=== PATIENT | female | born 1955 | race Caucasian/White ===

== ENCOUNTER 2019-12-20 16:12 | Outpatient (CLI) | payer MEDICARE, BC, SELFPAY ==
--- NOTE | ~2019-12-20 | MM_ITS ---
EXAMINATION: MM screening elizabeth BI w tim HISTORY: Screening mammogram TECHNIQUE: Craniocaudal and mediolateral oblique 3-D tomosynthesis images were obtained and synthetic 2-D images were generated. CAD analysis was submitted and interpreted. COMPARISON: 09/27/2018, 01/25/2018, 07/18/2016 bilateral digital screening mammogram examinations BREAST PARENCHYMAL COMPOSITION: There are scattered areas of fibroglandular density. FINDINGS: There is no evidence of suspicious mass, calcification, or architectural distortion to sugg est malignancy in either breast. There has been no suspicious interval change. IMPRESSION: 1. No mammographic evidence of malignancy. 2. Recommend routine screening mammography in one year. BI-RADS Category 1: Negative Reviewed, dictated and finalized at location A.
== END 2019-12-20 16:13 | disposition home or self-care (01) ==
PROVIDERS: PCP Family Medicine; Visit Provider Student in an Organized Health Care Education/Training Program
DX: Z12.31 Encounter for screening mammogram for malignant neoplasm of breast (principal)
CPT/HCPCS: 77063; 77067

== ENCOUNTER 2020-04-10 09:55 | Outpatient (CLI) | payer MEDICARE, BC, SELFPAY ==
--- NOTE | 2020-04-10 | ECG_ITS ---
Measurements Intervals [place] Rate: 77 P: 50 [place]: 175 QRS: 34 QRSD: 85 T: 40 QT: 341 QTc: 388 Interpretive Statements SINUS RHYTHM LOW QRS VOLTAGE IN PRECORDIAL LEADS BORDERLINE ECG Electronically Signed On 04-10-2020 10:53:26 LINEMARKER by Jai Godinez D.O.
== END 2020-04-10 09:56 | disposition home or self-care (01) ==
LOC: ANHCARD 09:59
PROVIDERS: PCP Family Medicine; Visit Provider Podiatrist Foot & Ankle Surgery
DX: R03.0 Elevated blood-pressure reading, without diagnosis of hypertension (principal)
CPT/HCPCS: 93005

== ENCOUNTER 2020-12-19 09:08 | Outpatient (CLI) | payer MEDICARE, BC, SELFPAY ==
--- NOTE | ~2020-12-19 | MM_ITS ---
EXAMINATION: MM screening elizabeth BI w tim HISTORY: Screening mammogram TECHNIQUE: Craniocaudal and mediolateral oblique 3-D tomosynthesis images were obtained and synthetic 2-D images were generated. CAD analysis was submitted and interpreted. COMPARISON: 12/20/2019, 09/27/2018, 09/24/2017 bilateral digital screening mammogram examinations BREAST PARENCHYMAL COMPOSITION: There are scattered areas of fibroglandular density. FINDINGS: There is no evidence of suspicious mass, calcification, or architectural distortion to sugg est malignancy in either breast. There has been no suspicious interval change. IMPRESSION: 1. No mammographic evidence of malignancy. 2. Recommend routine screening mammography in one year. BI-RADS Category 1: Negative Reviewed, dictated and finalized at location A.
== END 2020-12-19 09:09 | disposition home or self-care (01) ==
PROVIDERS: PCP Family Medicine; Visit Provider Student in an Organized Health Care Education/Training Program
DX: Z12.31 Encounter for screening mammogram for malignant neoplasm of breast (principal)
CPT/HCPCS: 77063; 77067

== ENCOUNTER → 2021-08-19 11:38 | Outpatient (CLI) | payer MEDICARE, BC, SELFPAY ==
--- NOTE | ~2021-08-19 | XR_ITS ---
XR chest 2V DATE: 08/19/2021 12:09 INDICATION: Shortness of breath TECHNIQUE: PA and lateral views COMPARISON: 05/22/2017 PA and lateral chest FINDINGS: Normal heart size. No hilar or mediastinal enlargement. No pulmonary infiltrate or consolid ation, pleural effusion or pulmonary vascular congestion or pneumothorax is detected. There is osteop enia. IMPRESSION: No active cardiopulmonary disease Reviewed, dictated and finalized at location A.
== END ==
PROVIDERS: PCP Family Medicine; Visit Provider Nurse Practitioner Family
DX: R06.02 Shortness of breath (principal)
CPT/HCPCS: 71046

== ENCOUNTER 2021-08-19 12:20 | Outpatient (CLI) | payer MEDICARE, BC, SELFPAY ==
--- NOTE | 2021-08-19 12:27 | ECG_ITS ---
Measurements Intervals [place] Rate: 69 P: 29 [place]: 163 QRS: -1 QRSD: 90 T: -1 QT: 350 QTc: 376 Interpretive Statements SINUS RHYTHM BASELINE ARTIFACT LOW QRS VOLTAGE IN PRECORDIAL LEADS BORDERLINE ECG COMPARED TO ECG 04/10/2020 10:38:45 NO SIGNIFICANT CHANGES Electronically Signed On 08-19-2021 14:53:15 CDT by Sunny Whitman M.D.
== END 2021-08-19 12:21 | disposition home or self-care (01) ==
PROVIDERS: PCP Family Medicine; Visit Provider Family Medicine
DX: R06.02 Shortness of breath (principal)
CPT/HCPCS: 93005

== ENCOUNTER 2021-09-11 09:04 | Outpatient (CLI) | payer MEDICARE, BC, SELFPAY ==
--- NOTE | 2021-09-27 13:42 | P.PCNPFT_ITS ---
PFT Procedure Performed PFT Procedure Performed Spirometry with Pre/Post Bronchodilator Plethysmography (Lung Vol) Diffusing Cap (DLCO) Flow Vol Loop PFT Interpretation DOS: 09/11/2021 REQUESTING: Ayala Pratt NP REASON FOR TESTING: Shortness of rbeath PULMONARY FUNCTION TESTS Results are reliable and reproducible. Spirometry: Pre-bronchodilator FEV1 is 99% predicted, 1.98 L, normal. Pre- bronchodilator FVC is 105% predicted, 2.66 L, normal. FEV1/FVC ratio is 74% normal. [id number] is 89% predicted. After bronchodilator, there is a 9% increase in the FEV1, 108% predicted, 2.16 L. There is a 5% increase in the FVC, 110% predicted, 2.98 L. There is a 19% increase in the FEF 25-75, 106% pred icted, 1.91 L. The increase in flows does not meet the ATS guidelines for 12% increase in the FEV1 or FVC so this is non statistically significant. Lung volumes: Total lung capacity 88%, 3.9 L, normal. FRC 71%, 1.77 L, normal. ERV is 42%, 0.34 L, reduced. The BMI is 38.3 and this may be the cause of the low ERV. Residual volume 65%, 1.24 L, normal. RV/TLC 32%, normal. Airway resistance is 99%, normal. Diffusion: DLCO 71%, 13.7 mL/min/mmHg, normal. D/VA is 85%, 3.85 L, normal. LCO Flow volume loop: Normal. IMPRESSION: Normal spirometry, lung volumes and diffusion. No change with bro nchodilator. Lack of response to bronchodilator should not preclude use if clinically indicated. Arianna Ordaz MD
== END 2021-09-11 09:05 | disposition home or self-care (01) ==
LOC: ANHPFT 09:06
PROVIDERS: PCP Family Medicine; Visit Provider Nurse Practitioner Family
DX: R06.02 Shortness of breath (principal)
CPT/HCPCS: 94060; 94726; 94729

== ENCOUNTER 2021-11-01 09:05 | Outpatient (CLI) | payer MEDICARE, BC, SELFPAY ==
--- NOTE | 2021-11-01 09:17 | ECHO_ITS ---
Patient Info Name: Yanira Renteria Age: 65 years : 1955 Gender: Female Ht: 60 in Wt: 187 lbs BSA: 1.94 m2 HR: 71 bpm BP: 124 / 77 mmHg Technical Quality: Fair Exam Date: 11/01/2021 10:35 AM Exam Location: [facility] Pulmonary Patient Status: Outpatient Admit Date: 11/01/2021 Staff Ordering Physician: Janel Ovalle NP Authorization Rep: Zehra Newell RDCS Attending Provider: Janel Ovalle NP Referring Physician: Yamile OROZCO; Exam Type: CA echo doppler color flow Study Info Indications I10 - Essential (primary) hypertension Complete two-dimensional, color flow and Doppler transthoracic echocardiogram is performed. Summary 1. Complete two-dimensional, color flow and Doppler transthoracic echocardiogram is performed. 2. Left ventricular chamber dimension is normal. 3. Left ventricular systolic function is normal, estimated at 60-65%. 4. The left ventricular diastolic function is grade I diastolic dysfunction. 5. E/e' 8 is minimally elevated. 6. There is mild aortic valve sclerosis. 7. No pulmonary hypertension, estimated pulmonary arterial systolic pressure is 30 mmHg. Left Ventricle E/e' 8 is minimally elevated. Left ventricular chamber dimension is normal. Left ventricular systolic function is normal, estimated at 60-65%. The left ventricular diastolic function is grade I diastolic dysfunction. Right Ventricle Right ventricular chamber dimension is normal. Right ventricular systolic function is normal. Left Atria Left atrial chamber dimension is normal. Right Atria Right atrial chamber dimension is normal. Aortic Valve The aortic valve is trileaflet. There is mild aortic valve sclerosis. There is no aortic valve stenosis. There is no aortic valve regurgitation. Pulmonic Valve There is no pulmonic regurgitation. Mitral Valve There is no mitral valve stenosis. There is no mitral valve regurgitation. Tricuspid Valve There is no tricuspid valve regurgitation. No pulmonary hypertension, estimated pulmonary arterial systolic pressure is 30 mmHg. Pericardium/Pleural There is no pericardial effusion. Inferior Vena Cava Normal inferior vena cava with >50% collapse upon inspiration consistent with normal right atrial pressure, 5 mmHg. Aorta The aortic root size at the sinus of Valsalva is normal. Left Ventricular Outflow Tract Name Value Normal LVOT 2D LVOT Diameter 2.0 cm LVOT Doppler LVOT Peak Gradient 7 mmHg LVOT Mean Gradient 3 mmHg LVOT VTI 23 cm LVOT VTI/AV VTI Ratio 0.9 LVOT Stroke Volume 69 ml Pulmonic Valve Name Value Normal PV Doppler PV Peak Gradient 3 mmHg Mitral Valve
== END 2021-11-01 09:06 | disposition home or self-care (01) ==
LOC: ANHCARD 09:08
PROVIDERS: PCP Family Medicine; Visit Provider Nurse Practitioner Family
DX: R06.02 Shortness of breath (principal); I10 Essential (primary) hypertension; I70.0 Atherosclerosis of aorta
CPT/HCPCS: 93306

== ENCOUNTER 2021-12-25 09:01 | Outpatient (CLI) | payer MEDICARE, BC, SELFPAY ==
--- NOTE | ~2021-12-25 | MM_ITS ---
EXAMINATION: MM screening [facility] BI w tim HISTORY: Screening mammogram TECHNIQUE: Craniocaudal and mediolateral oblique 3-D tomosynthesis images were obtained and synthetic 2-D images were generated. CAD analysis was submitted and interpreted. COMPARISON: 12/19/2020, 12/20/2019, 09/27/2018 BREAST PARENCHYMAL COMPOSITION: There are scattered areas of fibroglandular density. FINDINGS: No suspicious mass, calcification, or architectural distortion are identified in either elan ast to suggest malignancy. There has been no suspicious interval change. IMPRESSION: 1. No mammographic evidence of malignancy. 2. Recommend routine screening mammography in one year. BI-RADS Category 1: Negative Reviewed, dictated and finalized at location A.
--- NOTE | ~2021-12-25 | DEXA_ITS ---
Bone Density Report Name: SHENA PORTER Age: 66 Sex: Female Ethnicity: White Date of : 1955 Indication: postmenopausal; screening for osteoporosis; height loss; asthma or emphysema; Referring Provider: FAMILIA WHALEN Study: Bone densitometry was performed. Exam Date: December 25, 2021 Accession number: [id number] Bone Density: Region BMD T-score Z-score Classification AP Spine(L1-L4) 0.984 -0.6 1.4 Normal Femoral Neck (Left) 0.707 -1.3 0.4 Osteopenia Total Hip (Left) 0.843 -0.8 0.6 Normal Femoral Neck (Right) 0.668 -1.6 0.1 Osteopenia Total Hip (Right) 0.885 -0.5 0.9 Normal Total Hip Mean 0.864 -0.7 0.8 Normal World Health Organization criteria for BMD impression classify patients as: Normal (T-score at or above -1.0), Osteopenia (T-score between -1.0 and -2.5), or Osteoporosis (T-score at or below -2.5). 10-year Fracture Risk(1): Major Osteoporotic Fracture 8.9% Hip Fracture 1.1% Reported Risk Factors: [place] (), Neck BMD=0.668, BMI=38.4 (1) FRAX(R) Version 3.08. Fracture probability calculated for an untreated patient. Fracture probability may be lower if the patient has received treatment. Clinical Information Provided by Patient: Has used the following medications: Vitamin D, Calcium Has the following medical conditions: Asthma or Emphysema Patient maximum height was 62 Menopause Age: 54 Drinks caffeinated beverages Onset of menses at age 11 Number of children 0 Impression: The patient has low bone mass, based on the Right Femoral Neck T-score. The patient has an estimated ten-year risk of hip fracture of 1.1% and an estimated ten-year risk of major fracture of 8.9%, based on the WHO FRAX algorithm. Discussion: BONE DENSITY IS LOW AT ONE OR MORE SKELETAL SITES. This patient's lowest T-score is low at one or more skeletal sites. It meets the World Health Organization's (WHO) criteria for ?low bone mass? (T-score between -1.0 and -2.5). The patient's 10-year risk of fracture as calculated by FRAX is less than the threshold where pharmacological therapy is recommended by the National Osteoporosis Foundation (NOF). However, all treatment decisions require clinical judgment and consideration of individual patient factors, including patient preferences, comorbidities, previous drug use, risk factors not captured in the FRAX model (e.g., frailty, falls, vitamin D deficiency, increased bone turnover, interval significant decline in bone density) and possible under or overestimation of fracture risk by FRAX. The patient should follow a healthful lifestyle (good nutrition with adequate calcium and vitamin D, and appropriate weight-bearing exercise). Follow-Up: Consider repeating this study in 2 to 3 years to reassess this patient's status, or sooner if there is tony
== END 2021-12-25 09:02 | disposition home or self-care (01) ==
LOC: ANHIMG 09:03
PROVIDERS: PCP Family Medicine; Visit Provider Student in an Organized Health Care Education/Training Program
DX: Z12.31 Encounter for screening mammogram for malignant neoplasm of breast (principal); Z78.0 Asymptomatic menopausal state; M85.852 Other specified disorders of bone density and structure, left thigh; M85.851 Other specified disorders of bone density and structure, right thigh
CPT/HCPCS: 77063; 77067; 77080

== ENCOUNTER → 2022-05-23 08:12 | Outpatient (CLI) | payer MEDICARE, BC, SELFPAY ==
--- NOTE | ~2022-05-23 | US_ITS ---
Thyroid ultrasound. Clinical History: Nontoxic goiter Findings: Real-time sonography of the thyroid gland was performed. The right lobe measures 3.7 x 1.2 x 1.1 cm. The left lobe measures 3.4 x 1.2 x 1.1 cm. The isthmus is 2 mm in AP diameter. There is a 6 mm hyperechoic solid nodule at the left lower pole. There is a 7 mm hypoechoic ovoid, wi clifton than tall solid nodule at the left side of the isthmus. Impression: Subcentimeter thyroid nodules, as above. No further follow-up required.. Reviewed, dictated and finalized at location M. Impression: Subcentimeter thyroid nodules, as above. No further follow-up required..
== END ==
PROVIDERS: PCP Family Medicine; Visit Provider Nurse Practitioner Family
DX: E04.2 Nontoxic multinodular goiter (principal)
CPT/HCPCS: 76536

== ENCOUNTER 2022-09-15 08:55 | Outpatient (CLI) | payer MEDICARE, BC, SELFPAY ==
--- NOTE | 2022-10-03 17:28 | WPDHOMESLEEP ---
Sleep Study - Home Unattended Date of Study: 09/15/22 Ordering Provider: Jai Godinez DO Interpreting Provider: Arianna Ordaz MD Home Sleep Study Type: Watch PAT Height: 1.55 m Weight: 88.451 kg Body Mass Index: 36.8 Neck Circumference (inches): 14.5 [place]: 8 Reason for Sleep Study Poor quality sleep, frequent nighttime awakenings, loud snoring Sleep History Yanira Renteria is a 66-year-old female with hypertension and hyperlipidemia. She is referred for a home sleep test for loud snoring that wakes her at night. This has been going on for years. She also has sinus issues and she is overweight. She has tried sinus medication at night which has not really helped. There is a family history of sleep apnea in her older brother and younger brother. She rarely awakens from sleep feeling short of breath. She rarely awakens at night with heartburn, belching or coughing. She frequently snores and it is frequently loud enough that others complain about it. She occasionally has difficulty sleeping with a cold. She rarely wakes up gasping for breath at night. She does not have breathing problems at night observed by others. She does not sweat excessively at night or notice her heart pounding or beating irregularly at night. She occasionally falls asleep during the day, rarely falls asleep involuntarily however she does rarely fall asleep while driving. She does not have loss of muscle tone with strong emotion. She rarely has daytime difficulties due to excessive sleepiness. She does not feel paralyzed on waking or falling asleep. She does not have vivid dreamlike scenes on waking or falling asleep. She does not feel afraid to go to sleep. She rarely has nightmares. She occasionally remembers her dreams. She rarely has racing thoughts. She rarely feels sad or depressed. She occasionally feels anxious. She occasionally has muscular tension. She rarely notices parts of her body jerking. She rarely kicks at night. She rarely has crawling or aching feelings in her legs. She occasionally has leg pain at night. She does not have morning jaw pain or grind her teeth during sleep. She occasionally is bothered by pain during the day. She rarely is awakened by pain at night. She rarely wakes up feeling stiff in the morning with sore or achy muscles. She occasionally wakes up with pain in the neck and spine. She has fatigue and memory problems. Normal bedtime is 11:00 p.m. falling asleep quickly. She wakes 3-4 times during the night to go to the bathroom. She is able to return to sleep within 5-10 minutes. Her normal wake time is 6:30 a.m.. On weekends, bedtime is later by 1 hour, midnight and she wakes by 730-8 a.m.. She estimates getting 5-6 hours of sleep at night. She takes naps in the afternoon or evening. A short nap lasting 10-15 minutes may be refreshing. She feels better in the morning and the afternoon compared to the evening. She frequently awakens feeling refreshed Habits: Quit tobacco 40 years ago. Caffeine 1 soda per day. No alcohol or recreational substances. [facility] Past Medical History Medical History Acid reflux Arthritis Basal cell carcinoma of nose BMI 37.0-37.9, adult BMI 38.0-38.9,adult Bunion of great toe Hammer toe High cholesterol Hypertension Surgical History Surgical History History of carpal tunnel surgery History of cataract surgery History of foot surgery bunion removed, screw in toe [place] teeth removed Family History Family History Sibling Diabetes mellitus Hypertension Father Depression Hypertension Malignant neoplasm of prostate Mother Hypertension Family history of dementia Other Family history of arthritis Family history of coronary artery disease Family history of malignant melano
[2022-10-03 17:54] VITALS: BMI 36.8
== END 2022-09-16 12:56 | disposition home or self-care (01) ==
LOC: ANHCSM 08:56
PROVIDERS: PCP Family Medicine; Visit Provider Internal Medicine Cardiovascular Disease
DX: G47.10 Hypersomnia, unspecified (principal); G47.39 Other sleep apnea; I10 Essential (primary) hypertension; E78.00 Pure hypercholesterolemia, unspecified; Z87.891 Personal history of nicotine dependence
CPT/HCPCS: 95800

== ENCOUNTER 2022-09-23 08:00 | Outpatient (CLI) | payer MEDICARE, BC, SELFPAY ==
--- NOTE | ~2022-09-23 | NM_ITS ---
EXAMINATION: NM samy stress w perfusion DATE: 09/23/2022 10:00 INDICATION: Shortness of breath TECHNIQUE: Rest images were obtained following intravenous administration of 11.0 mCi Tc99m tetrofosm in (Myoview). The patient was infused intravenously with Lexiscan (Regadenoson). Then, 34.5 mCi Tc99m tetrofosmin (Myoview) was administered intravenously, and stress images were obtained. Data was obinna nstructed into short axis and horizontal and vertical long axis SPECT images. Gated SPECT images were also obtained. COMPARISON: None. FINDINGS: There is no definite reversible or fixed perfusion abnormality to suggest ischemia or infar ction. There is normal left ventricular chamber size, wall motion and ejection fraction. Left ventr icular ejection fraction measures >70%. IMPRESSION: 1. Normal myocardial perfusion at rest and during stress. 2. Left ventricular ejection fraction measuring >70%. Reviewed, dictated and finalized at location A.
--- NOTE | 2022-09-23 08:20 | EST_ITS ---
Patient Info Name: Yanira Renteria Age: 66 years : 1955 Gender: Female Ht: 61 in Wt: 192 lbs BSA: 1.98 m2 HR: 66 bpm BP: 162 / 88 mmHg Heart Rhythm: Sinus Rhythm Exam Date: 09/23/2022 9:00 AM Exam Location: [facility] Stress Patient Status: Outpatient Admit Date: 09/23/2022 Staff Ordering Physician: Jai Godinez DO Attending Provider: Jai Godinez DO Exercise Technologist: Giana Sorensen CT Exercise Physician: Jai Godinez DO Exam Type: CA stress samy w NM Study Info Indications R06.02 - Shortness of breath A regadenoson stress test was performed. Summary 1. 1. Negative lexiscan stress test for ischemic ST changes by ECG criteria. 2. 2. Baseline hypertension. 3. 3. Nuclear scan to follow and will be reported separately. Please correlate with it. 4. 4. Patient informed of the above results. Protocol: Lexiscan Stress ECG Details Stage: REST Duration (min): 1 min : 8 sec HR (bpm): 68 SBP (mmHg): 162 DBP (mmHg): 88 Stage: REST Duration (min): 12 min : 46 sec HR (bpm): 66 SBP (mmHg): 162 DBP (mmHg): 88 Stage: STAGE 1 Duration (min): 1 min : 0 sec HR (bpm): 89 SBP (mmHg): 162 DBP (mmHg): 88 Stage: RECOVERY Duration (min): 1 min : 0 sec HR (bpm): 94 SBP (mmHg): 189 DBP (mmHg): 79 Stage: RECOVERY Duration (min): 2 min : 0 sec HR (bpm): 87 SBP (mmHg): 189 DBP (mmHg): 79 Stage: RECOVERY Duration (min): 3 min : 0 sec HR (bpm): 85 SBP (mmHg): 189 DBP (mmHg): 79 Stage: RECOVERY Duration (min): 3 min : 13 sec HR (bpm): 83 SBP (mmHg): 186 DBP (mmHg): 81 Rest HR: 66 bpm Peak HR: 99 bpm Rest Sys BP: 162 mmHg Peak Sys BP: 189 mmHg Max Pred HR: 152 bpm % Max Pred HR: 65 % Target HR: 129 bpm Max RPP: 18,711 bpm*mmHg Termination Reason: Completed protocol Cardiac Symptoms: Shortness of breath Total Time: 1 min : 0 sec Rest Carranza BP: 88 mmHg Peak Carranza BP: 79 mmHg Total Dose: 0.4 mg Resting ECG Sinus rhythm. Stress ECG No ST changes. Arrhythmias None. Report Signatures
== END 2022-09-23 08:01 | disposition home or self-care (01) ==
PROVIDERS: PCP Family Medicine; Visit Provider Internal Medicine Cardiovascular Disease
DX: R06.02 Shortness of breath (principal)
CPT/HCPCS: 78452; 93017; A9502; J2785

== ENCOUNTER 2022-12-29 09:35 | Outpatient (CLI) | payer MEDICARE, BC, SELFPAY ==
--- NOTE | ~2022-12-29 | MM_ITS ---
EXAMINATION: MM screening [facility] BI w tim HISTORY: Screening mammogram TECHNIQUE: Craniocaudal and mediolateral oblique 3-D tomosynthesis images were obtained and synthetic 2-D images were generated. CAD analysis was submitted and interpreted. COMPARISON: 12/25/2021, 12/19/2020, 12/20/2019 BREAST PARENCHYMAL COMPOSITION: The breasts are almost entirely fatty. FINDINGS: No suspicious mass, calcification, or architectural distortion are identified in either elan ast to suggest malignancy. There has been no suspicious interval change. IMPRESSION: 1. No mammographic evidence of malignancy. 2. Recommend routine screening mammography in one year. BI-RADS Category 1: Negative Reviewed, dictated and finalized at location A.
== END 2022-12-29 09:36 | disposition home or self-care (01) ==
LOC: ANHIMG 09:38
PROVIDERS: PCP Family Medicine; Visit Provider Registered Nurse
DX: Z12.31 Encounter for screening mammogram for malignant neoplasm of breast (principal)
CPT/HCPCS: 77063; 77067

== ENCOUNTER 2023-01-01 08:33 | Outpatient (CLI) | payer MEDICARE, BC, SELFPAY ==
--- NOTE | 2023-01-20 18:05 | WPDSLEEPSTUD ---
Sleep Study Date of Study: 01/01/23 Ordering Provider: ALEIDA Victoria Interpreting Physician: Marlys Argueta, Sleep Study Type: CPAP Titration Height: 1.57 m Weight: 87.09 kg Body Mass Index: 35.1 Neck Circumference (inches): 14.5 [place]: 8 Reason for Sleep Study The patient had a WatchPAT home sleep test on 09/15/2022 that showed an overall AHI of 24.1, central apnea index of 9.8 and desaturation down to 86%. It was recommended that she have a PAP Titration study due to elevated central apnea index. Sleep History Yanira Renteria is a 67-year-old female with? hypertension and hyperlipidemia. She is referred for a home sleep test for loud snoring that wakes her at night.? This has been going on for years.? She also has sinus issues and she is overweight.? She has tried sinus medication at night which has not really helped.? There is a family history of sleep apnea in her older brother and younger brother.? She rarely awakens from sleep feeling short of breath.? She rarely awakens at night with heartburn, belching or coughing.? She frequently snores and it is frequently loud enough that others complain about it.? She occasionally has difficulty sleeping with a cold.? She rarely wakes up gasping for breath at night.? She does not have breathing problems at night observed by others.? She does not sweat excessively at night or notice her heart pounding or beating irregularly at night.? She occasionally falls asleep during the day, rarely falls asleep involuntarily however she does rarely fall asleep while driving.? She does not have loss of muscle tone with strong emotion.? She rarely has daytime difficulties due to excessive sleepiness.? She does not feel paralyzed on waking or falling asleep.? She does not have vivid dreamlike scenes on waking or falling asleep.? She does not feel afraid to go to sleep.? She rarely has nightmares.? She occasionally remembers her dreams.? She rarely has racing thoughts.? She rarely feels sad or depressed.? She occasionally feels anxious.? She occasionally has muscular tension.? She rarely notices parts of her body jerking.? She rarely kicks at night.? She rarely has crawling or aching feelings in her legs.? She occasionally has leg pain at night.? She does not have morning jaw pain or grind her teeth during sleep.? She occasionally is bothered by pain during the day.? She rarely is awakened by pain at night.? She rarely wakes up feeling stiff in the morning with sore or achy muscles.? She occasionally wakes up with pain in the neck and spine.? She has fatigue and memory problems. Normal bedtime is ? 11:00 p.m. falling asleep quickly.? She wakes 3-4 times during the night to go to the bathroom.? She is able to return to sleep within 5-10 minutes.? Her normal wake time is 6:30 a.m..? On weekends, bedtime is later by 1 hour, midnight and she wakes by 730-8 a.m..? She estimates getting 5-6 hours of sleep at night.? She takes naps in the afternoon or evening.? A short nap lasting 10-15 minutes may be refreshing.? She feels better in the morning and the afternoon compared to the evening.? She frequently awakens feeling refreshed Habits:? Quit tobacco 40 years ago.? Caffeine 1 soda per day.? No alcohol or recreational substances. [facility] Past Medical History Medical History (Updated 01/20/23 @ 18:24 by Marlys Argueta DO) Acid reflux Arthritis Basal cell carcinoma of nose BMI 37.0-37.9, adult BMI 38.0-38.9,adult Bunion of great toe Hammer toe High cholesterol Hypertension Mixed sleep apnea Surgical History Surgical History History of carpal tunnel surgery History of cataract surgery History of foot surgery bunion removed, screw in toe [place] teeth removed Family History Family History Sibling Diabetes mellitus Hypertension Father Depression Hypertension Malignant neoplasm of pros
[2023-01-20 18:23] VITALS: BMI 35.1
== END 2023-01-02 07:16 | disposition home or self-care (01) ==
LOC: ANHCSM 08:34
PROVIDERS: PCP Family Medicine; Visit Provider Physician Assistant
DX: G47.39 Other sleep apnea (principal)
CPT/HCPCS: 95811

== ENCOUNTER 2023-11-24 00:50 | Day surgery (SDC) | payer MEDICARE, BC, SELFPAY ==
[2023-11-03 09:44] VITALS: BMI 34.1
[2023-11-24 09:15] VITALS: BP 153/84; PULSE 89; RESP 20; TEMP 36.4; O2SAT 100
[2023-11-24] MEDS: LACTATED RINGERS 1,000 ML 150 ML IV CONT (09:28)
--- NOTE | 2023-11-24 09:31 | WPDANESEPPF ---
Anes - Initial Pre Proc Eval Procedure: Operation Date: 11/24/23 10:30 Proposed Procedures p Colonoscopy - Deng Denney MD Date/Time: 11/24/23 09:31 Surgeon: Deng Denney MD Pre Op Diagnosis: Melena Patient Data Age: 68 Gender: F Height: 1.55 m Weight: 81.8 kg Last Vital Signs Temp 97.6 F 11/24/23 09:15 Pulse 89 11/24/23 09:15 Resp 20 11/24/23 09:15 BP 153/84 H 11/24/23 09:15 Pulse Ox 100 11/24/23 09:15 O2 Del Method Room Air 11/24/23 09:15 Allergies Allergy/AdvReac Type Severity Reaction Status Date / Time johnson Allergy Unknown Unknown Verified 11/24/23 09:12 mold Allergy Unknown Unknown Verified 11/24/23 09:12 Home Medications Medication Instructions Recorded Confirmed Type fexofenadine 180 mg tablet 180 mg PO DAILY 04/19/19 11/24/23 History (Diamante Allergy) multivitamin (Daily Multi-Vitamin 1 tablet PO DAILY 06/06/21 11/24/23 History tablet) estradiol 0.01% (0.1 mg/gram) See Rx Instructions .Route 06/11/22 11/24/23 Rx vaginal cream (Estrace) .COMPLEX #42.5 grams cholecalciferol (vitamin D3) 125 mcg (0.5 mL) PO DAILY #59 mL 07/30/22 11/24/23 Rx esomeprazole magnesium 40 mg 40 mg PO DAILY #90 caps 07/30/22 11/24/23 Rx capsule,delayed release (Nexium) lisinopril 20 mg tablet See Rx Instructions .Route 07/30/22 11/24/23 Rx .COMPLEX #90 tabs lovastatin 40 mg tablet See Rx Instructions .Route 07/30/22 11/24/23 Rx .COMPLEX #90 tabs melatonin 5 mg tablet,immediate 5 mg PO QHS PRN insomnia #30 ea 07/30/22 11/24/23 Rx and extended release albuterol sulfate 90 mcg/actuation 2 inh inhalation Q4H PRN shortness 08/07/22 11/24/23 Rx aerosol inhaler of breath or wheezing #8.5 grams mupirocin 2 % topical ointment 1 applic topical BID #15 grams 07/20/23 11/24/23 Rx acetaminophen 325 mg capsule 650 mg PO QHS PRN Pain 09/23/23 11/24/23 History (Tylenol) Patient hx anesthesia problems: none Family hx anesthesia problems: none Results Review: All pre-operative results and documents have been reviewed as part of the pre-operative evaluation. [facility] Past Medical History Medical History (Updated 08/24/23 @ 10:42 by Mel Raymundo NP) Acid reflux Adult BMI 36.0-36.9 kg/sq m Arthritis Basal cell carcinoma of nose BMI 34.0-34.9,adult Bunion of great toe Grade I diastolic dysfunction Hammer toe High cholesterol Hypersomnia Hypertension Low bone mass Mixed sleep apnea Other specified personal risk factors, not elsewhere classified Screening for osteoporosis Screening for thyroid disorder Urinary urgency Vaginal atrophy Vertigo Surgical History Surgical History History of carpal tunnel surgery History of cataract surgery History of foot surgery bunion removed, screw in toe [place] teeth removed Family History Family History Sibling Diabetes mellitus Hypertension Father Depression Hypertension Malignant neoplasm of prostate Mother Hypertension Family history of dementia Other Family history of arthritis Family history of coronary artery disease Family history of malignant melanoma Social History Social History Years smoked: 10 Smoking status: Former smoker Tobacco type: cigarettes Second hand tobacco smoke exposure: No Smoking end date: 03/02/74 Alcohol intake: current Drinks per week: 1 Alcohol use details: less than 1 Substance use: never Substance use type: does not use Lack of Transportation: No Lack of Food: Never True Current Housing: I Have Housing Concerned About Future Housing: No Difficulty Paying Gas/Electric Bills: No Difficulty Paying for Meds: No Currently Unemployed: No Education: High School Diploma/GED Difficulty w/ Childcare or Family Care: No Living arrangements
--- NOTE | 2023-11-24 09:54 | PM.HPGS ---
History of Present Illness History of Present Illness Consent: Risks, benefits, and alternatives have been discussed and questions answered. Patient agrees to proceed with procedure. Chief complaint: Melena Narrative: Yanira Renteria is a 68 year old female with blood in stool, last colonoscopy 2018 Review of Systems Review of Systems: All systems reviewed & are unremarkable except as noted in HPI and below PMFSH Past Medical History Medical History (Updated 08/24/23 @ 10:42 by Mel Raymundo NP) Acid reflux Adult BMI 36.0-36.9 kg/sq m Arthritis Basal cell carcinoma of nose BMI 34.0-34.9,adult Bunion of great toe Grade I diastolic dysfunction Hammer toe High cholesterol Hypersomnia Hypertension Low bone mass Mixed sleep apnea Other specified personal risk factors, not elsewhere classified Screening for osteoporosis Screening for thyroid disorder Urinary urgency Vaginal atrophy Vertigo Surgical History Surgical History History of carpal tunnel surgery History of cataract surgery History of foot surgery bunion removed, screw in toe [place] teeth removed Family History Family History Sibling Diabetes mellitus Hypertension Father Depression Hypertension Malignant neoplasm of prostate Mother Hypertension Family history of dementia Other Family history of arthritis Family history of coronary artery disease Family history of malignant melanoma Social History Social History Years smoked: 10 Smoking status: Former smoker Tobacco type: cigarettes Second hand tobacco smoke exposure: No Smoking end date: 03/02/74 Alcohol intake: current Drinks per week: 1 Alcohol use details: less than 1 Substance use: never Substance use type: does not use Lack of Transportation: No Lack of Food: Never True Current Housing: I Have Housing Concerned About Future Housing: No Difficulty Paying Gas/Electric Bills: No Difficulty Paying for Meds: No Currently Unemployed: No Education: High School Diploma/GED Difficulty w/ Childcare or Family Care: No Living arrangements: with roommate(s) Occupation/Education: retired Additional occupation/education comments: [employer] Gender identity (if verbalized by the patient): Female Spiritual care concerns: No Meds Home Medications and Allergies Home Medications Medication Instructions Recorded Confirmed Type fexofenadine 180 mg tablet 180 mg PO DAILY 04/19/19 11/24/23 History (Diamante Allergy) multivitamin (Daily Multi-Vitamin 1 tablet PO DAILY 06/06/21 11/24/23 History tablet) estradiol 0.01% (0.1 mg/gram) See Rx Instructions .Route 06/11/22 11/24/23 Rx vaginal cream (Estrace) .COMPLEX #42.5 grams cholecalciferol (vitamin D3) 125 mcg (0.5 mL) PO DAILY #59 mL 07/30/22 11/24/23 Rx esomeprazole magnesium 40 mg 40 mg PO DAILY #90 caps 07/30/22 11/24/23 Rx capsule,delayed release (Nexium) lisinopril 20 mg tablet See Rx Instructions .Route 07/30/22 11/24/23 Rx .COMPLEX #90 tabs lovastatin 40 mg tablet See Rx Instructions .Route 07/30/22 11/24/23 Rx .COMPLEX #90 tabs melatonin 5 mg tablet,immediate 5 mg PO QHS PRN insomnia #30 ea 07/30/22 11/24/23 Rx and extended release albuterol sulfate 90 mcg/actuation 2 inh inhalation Q4H PRN shortness 08/07/22 11/24/23 Rx aerosol inhaler of breath or wheezing #8.5 grams mupirocin 2 % topical ointment 1 applic topical BID #15 grams 07/20/23 11/24/23 Rx acetaminophen 325 mg capsule 650 mg PO QHS PRN Pain 09/23/23 11/24/23 History (Tylenol) Allergies Allergy/AdvReac Type Severity Reaction Status Date / Time johnson Allergy Unknown Unknown Verified 11/24/23 09:12 mold Allergy Unknown Unknown Verified 11/24/23 09:12 Vital Signs Vital Signs - 24 hr 11/24/23 0
[2023-11-24 10:16] VITALS: BP 129/74; PULSE 75; RESP 30; O2SAT 99
[2023-11-24 10:26] VITALS: BP 123/76; PULSE 80; RESP 20; O2SAT 100
[2023-11-24 10:36] VITALS: BP 126/92; PULSE 86; RESP 20; O2SAT 100
== END 2023-11-24 10:53 | disposition home or self-care (01) ==
PROVIDERS: PCP Family Medicine; Visit Provider Internal Medicine Gastroenterology
PROC: 0DJD8ZZ Inspection of Lower Intestinal Tract, Via Natural or Artificial Opening Endoscopic (ICD-10-PCS; CPT 45378; principal; 2023-11-24 10:30)
DX: K63.5 Polyp of colon (principal); K64.8 Other hemorrhoids; E78.00 Pure hypercholesterolemia, unspecified; I11.9 Hypertensive heart disease without heart failure; K21.9 Gastro-esophageal reflux disease without esophagitis; G47.39 Other sleep apnea; Z87.891 Personal history of nicotine dependence; Z79.51 Long term (current) use of inhaled steroids
CPT/HCPCS: 45385; 88305; J2001; J2704; J7120

== ENCOUNTER 2023-12-24 11:01 | Outpatient (CLI) | payer MEDICARE, BC, SELFPAY ==
[2023-12-24 11:35] LABS: Basophils Percent Auto 0.4 % (0.2-1.2); Eosinophils Absolute Auto 0.1 K/mm3 (0-0.3); Eosinophils Percent Auto 1.5 % (0-4.4); Hematocrit 41.2 % (37.0-47.0); Immature Granulocyte Absolute 0.01 K/mm3 (0.00-0.031); Immature Granulocyte Percent A 0.1 % (0-0.5); Lymphocytes Absolute Auto 1.15 K/mm3 (0.9-3.2); Lymphocytes Percent Auto 15.6 % (18.3-44.2); Mean Corpuscular HGB Conc 31.6 g/dl (32-36); Mean Corpuscular Hemoglobin 28.4 pg (26-34); Mean Platelet Volume 10.6 fl (7.4-10.4); Monocytes Absolute Auto 0.5 K/mm3 (0.1-0.6); Monocytes Percent Auto 7.2 % (2.6-8.5); Neutrophils Absolute Auto 5.5 K/mm3 (1.3-6.7); Neutrophils Percent Auto 75.2 % (45.5-73.1); Platelet Count Result 144 k/mm3 (150-375); Red Blood Count 4.58 M/mm3 (4.2-5.4); White Blood Count 7.4 K/mm3 (4.5-10.0)
[2023-12-24 13:13] LABS: Alanine Aminotransferase 27 U/L (6-35); Albumin Level 4.6 g/dL (3.5-5.1); Alkaline Phosphatase 74 U/L (38-126); Anion Gap 9 mmol/L (4-12); Aspartate Amino Transferase 36 U/L (14-36); Bilirubin,Total 0.6 mg/dL (0.2-1.3); Blood Urea Nitrogen 18 mg/dL (7-17); Calcium 9.8 mg/dL (8.4-10.2); Carbon Dioxide 28 mmol/L (22-30); Chloride 102 mmol/L (98-107); Estimated Glomerular Filt Rate > 60; Glucose 90 mg/dL (65-110); Potassium 3.7 mmol/L (3.4-5.0); Sodium 139 mmol/L (137-145)
[2023-12-24 13:26] LABS: INR 0.9; Prothrombin Time 12.2 Seconds (11.1-14.7)
[2023-12-24 13:27] LABS: Fibrinogen 370 mg/dl (215-510)
[2023-12-24 13:43] LABS: Partial Thromboplastin Time < 20.0 Seconds (22.3-36.8)
[2023-12-29 11:48] LABS: Factor VIII Activity 136 % normal (50-180); aPTT 25 sec (23-32)
[2023-12-29 13:03] LABS: von Willebrand Factor Ag 167 % (50-217)
== END 2023-12-24 11:02 | disposition home or self-care (01) ==
LOC: ANHLAB 11:03
PROVIDERS: PCP Family Medicine; Visit Provider Internal Medicine Hematology & Oncology
DX: D69.9 Hemorrhagic condition, unspecified (principal)
CPT/HCPCS: 36415; 80053; 85025; 85240; 85246; 85384; 85610; 85730; 86038; 86039

== ENCOUNTER 2024-01-20 08:26 | Outpatient (CLI) | payer MEDICARE, BC, SELFPAY ==
--- NOTE | ~2024-01-20 | MM_ITS ---
EXAMINATION: MM screening [facility] BI w tim HISTORY: Screening mammogram TECHNIQUE: Craniocaudal and mediolateral oblique 3-D tomosynthesis images were obtained and synthetic 2-D images were generated. CAD analysis was submitted and interpreted. COMPARISON: 12/29/2022, 12/25/2021, 12/19/2020, 12/20/2019 BREAST PARENCHYMAL COMPOSITION:Not Dense. The breasts are almost entirely fatty FINDINGS: No suspicious mass, calcification, or architectural distortion are identified in either elan ast to suggest malignancy. There has been no suspicious interval change. IMPRESSION: No mammographic evidence of malignancy. Recommend routine screening mammography in one year. BI-RADS Category 1: Negative Reviewed, dictated and finalized at location . TRAPPER
--- NOTE | ~2024-01-20 | DEXA_ITS ---
Bone Density Report Name: SHENA PORTER Age: 68 Sex: Female Ethnicity: White Date of : 1955 Indication: postmenopausal; screening for osteoporosis; height loss; asthma or emphysema; Referring Provider: EBONY LOPEZ Study: Bone densitometry was performed. Exam Date: January 20, 2024 Accession number: [id number] Bone Density: Region BMD T-score Z-score Classification AP Spine(L1-L4) 0.902 -1.3 0.8 Osteopenia Femoral Neck (Left) 0.631 -2.0 -0.2 Osteopenia Total Hip (Left) 0.755 -1.5 0.0 Osteopenia Femoral Neck (Right) 0.609 -2.2 -0.4 Osteopenia Total Hip (Right) 0.777 -1.4 0.2 Osteopenia Total Hip Mean 0.766 -1.5 0.1 Osteopenia World Health Organization criteria for BMD impression classify patients as: Normal (T-score at or above -1.0), Osteopenia (T-score between -1.0 and -2.5), or Osteoporosis (T-score at or below -2.5). 10-year Fracture Risk(1): Major Osteoporotic Fracture 11% Hip Fracture 2.3% Reported Risk Factors: [place] (), Neck BMD=0.609, BMI=36.1 (1) FRAX(R) Version 3.08. Fracture probability calculated for an untreated patient. Fracture probability may be lower if the patient has received treatment. Previous Exams: Region Exam Age BMD T-score BMD Change BMD Change Date g/cm2 vs Baseline vs Previous AP Spine (L1-L4) 01/20/2024 68 0.902 -1.3 -0.102 (-10.2% -0.082 (-8.3%) 12/25/2021 66 0.984 -0.6 -0.021 (-2.1%) -0.031 (-3.0%) 09/27/2018 62 1.015 -0.3 0.010 (1.0%)# 0.021 (2.1%) 07/18/2016 60 0.994 -0.5 -0.011 (-1.1%) -0.024 (-2.4%) 03/17/2014 58 1.018 -0.3 0.014 (1.4%)# 0.014 (1.4%)# 03/01/2012 56 1.005 -0.4 Total Hip(Left) 01/20/2024 68 0.755 -1.5 -0.135 (-15.2% -0.088 (-10.5% 12/25/2021 66 0.843 -0.8 -0.047 (-5.3%) -0.011 (-1.3%) 09/27/2018 62 0.854 -0.7 -0.036 (-4.0%) -0.034 (-3.8%) 07/18/2016 60 0.888 -0.4 -0.001 (-0.2%) 0.001 (0.1%) 03/17/2014 58 0.887 -0.4 -0.003 (-0.3%) -0.003 (-0.3%) 03/01/2012 56 0.890 -0.4 Total Hip(Right) 01/20/2024 68 0.777 -1.4 -0.177 (-18.6% -0.108 (-12.2% 12/25/2021 66 0.885 -0.5 -0.069 (-7.2%) -0.034 (-3.7%) 09/27/2018 62 0.919 -0.2 -0.035 (-3.7%) 0.028 (3.2%)* 07/18/2016 60 0.891 -0.4 -0.064 (-6.7%) -0.042 (-4.5%) 03/17/2014 58 0.933 -0.1 -0.021 (-2.2%) -0.021 (-2.2%) 03/01/2012 56 0.954 0.1 *Denotes significance at 95% confidence level, LSC for AP Spine = 0.022 g/cm2, LSC for Total Hip = 0.027 g/cm2 # Denotes dissimilar scan types or analysis methods Clinical Information Provided by Patient: Has used the following medications: Vitamin D, Calcium Has the following medical conditions: Asthma or Emphysema Patient maximum height was 62 Menopause Age: 54 No regular weight bearing exercise Drinks caffeinated beverages Onset of menses at age 11 Number of children 0 Impression: The patient has low bone mass, based on the Right Femoral Neck T-score. The patient has an estimated ten-year risk of hip fracture of 2.3% and an estimated ten-year risk of major fracture of 11%, based on the WHO FRAX algorithm. No significant bone loss was observed. Discussion: BONE DENSITY IS LOW AT ONE OR MORE SKELETAL SITES. This patient's lowest T-score is low at one or more skeletal sites. It meets the World Health Organization's (WHO) criteria for ?low bone mass? (T-score between -1.0 and -2.5). The patient's 10-year risk of fracture as calculated by FRAX is less than the threshold where pharmacological therapy is recommended by the National Osteoporosis Foundation (NOF). However, all treatment decisions require clinical judgment and consideration of individual patient factors, including patient preferences, comorbidities, previous drug use, risk factors not captured in the FRAX model (e.g., frailty, falls, vitamin D deficiency, increased bone turnover, interval significant decline in bone density) and possible under or overestimation of fracture risk by FRAX. The patient should follow a healthful lifestyle (good nutrition with adequate calcium and vitamin D, and appropriate weight-bearing exercise). Follow-Up: Consider repeating this study in 2 to 3 years to reassess this patient's status, or sooner if there is some new clinical indication. Reported by: JAZMÍN on 01/20/2024 9:07:00 AM. Reviewed, dictated and finalized at location ADesiree WINN
== END 2024-01-20 08:27 | disposition home or self-care (01) ==
LOC: ANHIMG 08:28
PROVIDERS: PCP Family Medicine; Visit Provider Nurse Practitioner Family
DX: Z12.31 Encounter for screening mammogram for malignant neoplasm of breast (principal); M85.89 Other specified disorders of bone density and structure, multiple sites; Z78.0 Asymptomatic menopausal state; Z13.820 Encounter for screening for osteoporosis
CPT/HCPCS: 77063; 77067; 77080

== ENCOUNTER 2024-03-15 07:22 | Outpatient (RCR) | payer MEDICARE, BC, SELFPAY ==
[2024-03-07 08:32] VITALS: BMI 34.9
--- NOTE | 2024-03-28 11:54 | PCWOUND ---
WOCN NOTE Patient called to cancel appointment for Thursday03/30/24, states wound is doing well. Patient to contact wound center if services are needed in the future.
== END 2024-05-23 08:28 | disposition home or self-care (01) ==
LOC: ANHWOC 07:22
PROVIDERS: PCP Family Medicine
DX: S81.812A Laceration without foreign body, left lower leg, initial encounter (principal)
CPT/HCPCS: 99213; A9270; G0463

== ENCOUNTER 2024-04-22 12:26 | Outpatient (CLI) | payer MEDICARE, BC, SELFPAY ==
--- OUTSIDE RECORDS SUMMARY | 2024-04-22 12:32 | XMS_ITS | Clinical Summary ---
Author Organization [facility] Address [address] [place] [address] Care Team Providers Care Molding Manager Name Role Phone Derek Rubio MD Primary Care Provider [phone] Medications fexofenadine (LAHSAE) 180 mg tablet Take 180 mg by mouth daily. Active esomeprazole (NexIUM) 40 mg Capsule, Delayed Release(E.C.) Take 40 mg by mouth daily. Active mupirocin (BACTROBAN) 2 % Ointment Apply to affected area 2 times daily. 4 Active Calcium-Cholec alciferol, D3, (OSCAL) 250 mg-3.125 mcg (125 unit) per tablet Take 1 Tablet by mouth daily. Active albuterol sulfate 90 mcg/actuation metered powder inhaler 2 Puffs by See Admin Instructions route see administration instructions. 4 Active acetaminophen (TYLENOL) 325 mg tablet Take 325 mg by mouth nightly as needed for Other (See Comment) or Pain (For pain in knees). Active lisinopriL (PRINIVIL) 40 mg tablet Take 20 mg by mouth daily at bedtime. Active lovastatin (ALTOPREV) 40 mg Extended Release 24 hour tablet Take 40 mg by mouth daily at bedtime. Active melatonin 5 mg Tablet Take 5 mg by mouth nightly as needed for Insomnia. Active MULTIVITAMIN ORAL Take by mouth 2 times daily. Active Active Problems No known active problems Encounters Date Type Department Care Team Description 04/20/2024 External Device Data [facility] ABSTRACTION Provider, Abstract 03/30/2024 External Device Data [facility] ABSTRACTION Provider, Abstract 03/24/2024 External Device Data [facility] ABSTRACTION Provider, Abstract 01/22/[address] [facility] [place] [address] [place] [phone] Prakash Britt MD from Last 3 Months Family History Medical History Relation Name Comments Basal cell carcinoma Brother 1 Diabetes Brother 1 Basal cell carcinoma Brother 2 Prostate Cancer Father Basal cell carcinoma Mother Heart Attack Mother Relation Name Status Comments Brother 1 Alive Brother 2 Alive Father Mother Social History Tobacco Use Types Packs/Day Years Used Date Smoking Tobacco: Never Smokeless Tobacco: Never Tobacco Cessation:Counseling Given: Not Answered Alcohol Use Standard Drinks/Week Comments Yes 4 (1 standard drink = 0.6 oz pur e alcohol) Ocasionally Comments Unknown Sex and Gender Information Value Date Recorded Sex Assigned at Female 01/04/2024 12:34 PM WORSTED WINDER Legal Sex Female 9:41 AM CDT Gender Identity Female 01/04/2024 12:34 PM WORSTED WINDER Sexual Orientation Not on file Last Filed Vital Signs Vital Sign Reading Time Taken Comments Blood Pressure 148/80 12/24/2023 10:39 AM CDT took bp meds last night Pulse 77 12/24/2023 10:19 AM CDT Temperature 36.6 C (97.8 F) 12/24/2023 10:19 AM CDT Respiratory Rate 15 12/24/2023 10:1 9 AM CDT Oxygen Saturation 97% 12/24/2023 10: 19 AM CDT Inhaled Oxygen Concentration - - Weight 81.7 kg (180 lb 3.2 oz) 12/24/2023 10:19 AM CDT Height 154.9 cm (5' 1 ) 12/24/2023 10:1 9 AM CDT Body Mass Index 34.05 12/24/2023 10:19 AM CDT Plan of Treatment Upcoming Encounters Date Type Department Care Team (Late st Contact Info) Description 04/22/2024 12:45 PM WORSTED WINDER Office Visit [facility] [address] [place] [address] Prakash Britt MD [address] [place] [address] Health Maintenance Due Date Last Done Comments Pre-Diabetes and Diabetes Screening 1955 Traditional Medicare (ACO) A nnual Wellness Visit 1972 BREAST CANCER SCREENING 1993 COLORECTAL SCREENING 1998 Colorectal Cancer Screening 1998 FIT-DNA Q 3 years 1998 FIT/FOBT Q 1 year 1998 Flex Sig/CT Colonography Q 5 years 1998 ZOSTER VACCINE (3 of 3) 04/14/2018 02/18/20 18, 12/13/2017, 01/27/2015 OSTEOPOROSIS SCREENING 2018 PNEUMOCOCCAL VACCINE 65+ YEA RS (2 of 2 - PPSV23) 01/17/2020 01/16/2019 INFLUENZA VACCINE (#1) 2023 9, 12/13/2017, 12/13/2017 DTAP/TDAP/TD VACCINES (2 - T d or Tdap) 07/15/2028 07/15/2018 RSV VACCINE (60+ or ) (1 - 1-dose 75+ series) 2028 Procedures Procedure Name Priority Date/Time Associated Diagnosis Comments VON WILLEBRAND PANEL Routine 04/06/2024 8:22 AM WORSTED WINDER Bleeding disorder PROTIME-INR Routine 04/06/2024 8:22 AM WORSTED WINDER Bleeding disorder FIBRINOGEN QUANTITATIVE Routine 04/06/2024 8:22 AM WORSTED WINDER Bleeding disorder LINH SCREEN W/REFLEX Routine 04/06/2024 8 :22 AM WORSTED WINDER Bleeding disorder from Last 3 Months Results * (ABNORMAL) VON WILLEBRAND PANEL (04/06/2024 8:22 AM WORSTED WINDER) COMMENT COAGULATION see note [facility] Comment: No laboratory evidence of von Willebrand disease. VWF and Factor VIII are acute phase reactants. Consequently, the patient's true baseline levels may not be reflected. Depending on the clinical index of suspicion, a second evaluation may be a consideration when the patient has returned to their baseline status of health. PTT 27 23 - 32 sec [facility] Comment: This test has not been validated for monitoring unfractionated heparin therapy. For testing that is validated for this type of therapy, please refer to the Heparin Anti-Xa assay (test code 07150). For additional information, please refer to http://[employer]/faq/DPW864 (This link is being provided for informational/ educational purposes only.) FACTOR VIII ACTIVITY, CLOTTING 180 50 - 180 % normal [facility] Comment: For additional information please refer to: http://[employer]/faq/ZIN684 (This link is being provided for informational/ educational purposes only.) VW FACTOR AG 195 50 - 217 % [facility] RISTOCETIN COFACTOR 213(H) 42 - 200 % normal [facility] VON WILLEBRAND MULTIMER ASSAY see note [facility] Comment: Normal distribution of von Willebrand Factor antigen multimers. von Willebrand Factor multimer reviewed by: Maria D Moulton, Ph.D. This test was developed and its analytical performance characteristics have been determined by [facility] [place], [place]. It has not been cleared or approved by the U.S. Food and Drug Administration. This assay has been validated pursuant to the CLIA regulations and is used for clinical purposes. FASTING:YES FASTING: YES Test Performed at: [facility] [address] [place] [address] Cesar Rankin M.D.,PhD Blood 04/06/2024 8:22 AM WORSTED WINDER 04/06/2024 8:23 AM WORSTED WINDER Result [facility] Prakash Britt MD HEMATOLOGY ORDERABLES Final Res ult Performing Organization Address City/State/ZIP Co in Phone Number [facility] [phone] [facility] [address] [place] [address] * PROTIME-INR (04/06/2024 8:22 AM WORSTED WINDER) INR 1.0 [facility] Comment: Reference Range 0.9-1.1 Moderate-intensity Warfarin Therapy 2.0-3.0 Higher-intensity Warfarin Therapy 3.0-4.0 PROTIME 10.9 9.0 - 11.5 sec [facility] Comment: For additional information, please refer to http://education.Sounder/faq/SQR010 (This link is being provided for informational/ educational purposes only.) FASTING:YES FASTING: YES Test Performed at: [facility] [place] [address] [place] [address] Dorothy Weaver Blood 04/06/2024 8:22 AM WORSTED WINDER 04/06/2024 8:23 AM WORSTED WINDER Result [facility] Prakash Britt MD HEMATOLOGY ORDERABLES Final Res ult Performing Organization Address City/State/ZIP [facility] Phone Number [facility] [phone] [place] [id number] [place] [address] * (ABNORMAL) FIBRINOGEN QUANTITATIVE (04/06/2024 8:22 AM WORSTED WINDER) FIBRINOGEN 444(H) 175 - 425 mg/dL [facility] Comment: FASTING:YES FASTING: YES Test Performed at: [facility] [address] [place] [address] Dorothy Weaver MD Blood 04/06/2024 8:22 AM WORSTED WINDER 04/06/2024 8:23 AM WORSTED WINDER Prakash Britt MD HEMATOLOGY ORDERABLES Final Res ult Performing Organization Address City/[facility]/ZIP Co de Phone Number [facility] [phone] [facility] [address] [address] * (ABNORMAL) LINH SCREEN W/REFLEX (04/06/2024 8:22 AM WORSTED WINDER) LINH SCREEN POSITIVE(A) NEGATIVE [facility] Comment: LINH IFA is a first line screen for detecting the presence of up to approximately 150 autoantibodies in various autoimmune diseases. A positive LINH IFA result is suggestive of autoimmune disease and reflexes to titer and pattern. Further laboratory testing may be considered if clinically indicated. For additional information, please refer to http://education.[employer]/faq/WRX594 (This link is being provided for informational/ educational purposes only.) LINH TITER 1:80(H) titer [facility] Comment: A low level LINH titer may be present in pre-clinical autoimmune diseases and normal individuals. Reference Range <1:40 Negative 1:40-1:80 Low Antibody Level >1:80 Elevated Antibody Level LINH PATTERN Mitotic, Intercellular Bridge(A) [facility] Comment: Staining of the intercellular bridge that connects daughter cells by the end of cell division, but before cell separation. Pattern is rare in systemic sclerosis, Raynaud's phenomenon, and in some malignancies. AC-27: Intercellular Bridge International Consensus on LINH Patterns (https://doi.org/10.1515/xqjw-1075-4655) FASTING:YES FASTING: YES Test Performed at: [facility] [address] [address] [address] [address] Dorothy Weaver MD Blood 04/06/2024 8:22 AM WORSTED WINDER 04/06/2024 8:23 AM WORSTED WINDER Prakash Britt MD CHEMISTRY ORDERABLES Final Resu lt Performing Organization Address City/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 [id number] PCP - General Family Practice 11/06/23
--- OUTSIDE RECORDS SUMMARY | 2024-04-22 12:32 | XMS_ITS | Continuity of Care Document ---
Author Organization [facility] Address [address] [place] [address] Phone Care Team Providers Care Sales Broker Name Role Phone Gary Bundy MD Unavailable Unavailable Allergies, Adverse Reactions, Alerts Substance Reaction Status Criticality TOLTERODINE TARTRATE Other Active No Info rmation Medications Medication Instructions Dosage Effective Dates (start - stop) Status Comments LISINOPRIL 20 MG TABLET TAKE ONE TABLET BY MOUTH ONCE DAILY - Active NASACORT AQ NASAL SPRAY 2 QD-daily - Active LASHAE 180 MG TABLET 1 QD-daily - Act katie SIMVASTATIN 20 MG TABLET 1 QHS - Active VESICARE 5MG TABS 1 QD-daily - Active Advance Directives Directive Yes / No Effective Date File Name No Information Encounters Encounter Description Practice Location Reason(s) For Visit Diagnoses Date Provider Providers Copied on Encounter [facility], [address], [place], [place], [address] , tel: [phone] [place] No Information 1 Gregorrayna Vega. [address], [id number], [place]. tel:[phone] [facility], [address], [place], [place], [address] , tel: [phone] [place] No Information 4 Gregor Vega. [address] [address], [place], [place], [address], . [phone] [facility], [address], [place], [place], [address] , [place] tel: [phone] [place] No Information 3 Gregor Vega. [address], [facility] [address], [place], [place], [address], [place]. tel:[phone] [facility], [address], [place], [place], [address] , [place] tel: [phone] Conversion Department No Information 1 Conversion Doctor. [facility], [place], [address], [place]. [facility], [address], [place], [place], [address] , [place] tel: [phone] [place] VACCINATION FOR DTP-DTAPEPISTAXIS OPEN WOUND OF FOOT 0 0 Gregor Vega. [address], [facility] [address], [place], [place], [address], [place]. tel:[phone] [facility], [address], [place], [place], [address] , [place] tel: [phone] [place] PLEURISY W/O EFFUS OR TBCHEST PAIN NECPLEURAL EFFUSION NOS 6 0 Gregor Vega. [address] [place] [address], [address] [address], [place], [place], [address], [place]. tel:[phone] [facility], [address], [place], [place], [address] , [place] tel: [phone] [place] ACUTE SINUSITIS NOS 0 Mignon Herrera. [address] [place] [address], [address] [address], [place], [place], [address]. tel:[phone] [facility], [address], [place], [place], [address] , [place] tel: [phone] [place] COUGHPURE HYPERCHOLESTEROLE MHYPERTENSION NOS 0 Gregor Vega. [address] [place] [address], [facility] [address], [place], [place], [address], [place]. tel:[phone] [facility], [address], [place], [place], [address] , [place] tel: [phone] [place] LONG-TERM USE MEDS NECALLERGIC RHINITIS NOSJOINT PAIN-L/LEGACTINIC KERATOSISBENIGN HYPERTENSION 0 9 Gregor Vega. [address], [address], [place], [place], [address], [place]. tel:[phone] [facility], [address], [place], [place], [address] , [place] tel: [phone] [place] NASAL MUCOSITIS (ULCER)HYPERLIPID EMIA NEC/NOSHYPERTONIC ITY OF BLADDER 9 Gregor Vega. [address], [address], [place], [place], [address], [place]. tel:[phone] [facility], [address], [place], [place], [address] , [place] tel: [phone] [place] No Information 9 Robert Pressleya. [address], [address], [place], [place], [address], [place]. tel:[phone] [facility], [address], [place], [place], [address] , [place] tel: [phone] [place] ABDMNAL PAIN UNSPCF SITEDIARRHEABLOOD IN STOOL 9 Gregor Vega. [address] [place] [address], [address], [place], [place], [address], [place]. tel:[phone] [facility], [address], [place], [place], [address] , [place] tel: [phone] [place] CHEST PAIN NOSABNORM ELECTROCARDIOGRAM 8 Gregor Vega. [address], [address], [place], [place], [address], [place]. tel:[phone] [facility], [address], [place], [place], [address] , [place] tel: [phone] [place] URIN TRACT INFECTION NOSFEM STRESS INCONTINENCE 8 Gregor Vega. [address] [place] [address], [address], [place], [place], [address], [place]. tel:[phone] [facility], [address], [place], [place], [address] , [place] tel: [phone] [place] FOREIGN BODY FINGER Sep-2 7-200 7 Gregor Vega. [address] [place] [address], [address], [place], [place], [address], [place]. tel: [phone] [facility], [address], [place], [place], [address] , [place] tel: [phone] [place] DIZZINESS AND GIDDINESSANXIETY STATE NOS Nov-3 0-200 5 Gregor Vega. [address] [place] [address], [address], [place], [place], [address], [place]. tel: [phone] [facility], [address], [place], [place], [address] , [place] tel: [phone] [place] H. INFLUENZAE INFECT NOS Nov-1 0-200 5 Gregor Vega. [address] [place] [address], [address], [place], [place], [address], [place]. tel: [phone] [facility], [address], [place], [place], [address] , [place] tel: [phone] [place] LOC PRIM OSTEOARTH-HAND Sep-3 0-200 5 Gregor Vega. [address] [place] [address], [address], [place], [place], [address], [place]. tel: [phone] [facility], [address], [place], [place], [address] , [place] tel: [phone] [place] ALLERGY, UNSPECIFIED Johnny- 1-200 5 Gregor Vega. [facility] [address], [place], [place], [address], [place]. tel: [phone] [facility], [address], [place], [place], [address] , [place] tel: [phone] [place] ACUTE URI NOS Mar-2 4-200 5 Gregor Vega. [address] [place], [place] [address], [address], [place], [place], [address], [place]. tel: [phone] [facility], [address], [place], [place], [address] , [place] tel: [phone] [place] AC SEROUS OTITIS MEDIA 1-200 5 Gregor Vega. [address], [address], [place], [place], [address], [place]. tel: [phone] [facility], [address], [place], [place], [address] , [place] tel:[phone] [place] FLATUL/ERUCTAT/GA S PAIN 7200 4 Gregor Vega. [address] [place] [address], [address], [place], [place], [address], [place]. tel: [phone] [facility], [address], [place], [place], [address] , [place] tel:[phone] [place] HAIR DISEASES NEC 5200 4 Sewing Sonal. [address], [address], [place], [place], [address], [place]. tel: [phone] [facility], [address], [place], [place], [address] , [place] tel:[phone] [place] ACUTE BRONCHITIS 2-200 3 Gregor Vega. [facility], [address], [place], [place], [address], [place]. tel: [phone] [facility], [address], [place], [place], [address] , [place] tel: [place] ACUTE GASTRTIS W/O HMRHG 4200 3 Gregor Vega. [facility] [address], [place], [place], [address], [place]. tel: [phone] [facility], [address], [place], [place], [address] , [place] tel:[phone] [place] SCREEN-DIABETES MELLITUS Fe 0-200 2 Gregor Vega. [facility] [address], [place], [place], [address], [place]. tel:[phone] [facility], [address], [place], [place], [address] , [place] tel: [phone] [place] NONSUPP OTITIS MEDIA NOSGOITER NOS 1 Mignon Herrera. [address], [address], [place], [place], [address]. tel:[phone] Family History Family Member Type Diagnosis Age At Onset No Information Immunizations Vaccine Date Status Comments 59116 - Tetanus_Diptheria_Pertussis_Tdap administered Source: Source Unspecified Payers Payer name Insurance type Covered constitution party ID Authoriza tion(s) No Information Social History Type Description Quantity Date Captured Comments Alcohol Use Details Unknown Caffeine Use Details Unknown Tobacco Use Status No Information Smoking Status No Information Sex Female Chief Complaint And Reason For Visit No Information Reason For Referral Reason For Referral No Information History Of Present Illness Encounter Date Complaint History Of Prese nt Illness No Information Functional Status Date Functional Assessmen t No Information Instructions Date Instruction Additional Infor mation No Information Assessments Type Assessment Date No Information Patient Care Teams Name Effective Dates (start - stop) Status Members No Information
--- OUTSIDE RECORDS SUMMARY | 2024-04-22 12:32 | XMS_ITS | Clinical Summary ---
Author Organization [facility] [employer] Address [address] [facility] [address] Care Team Providers Care Vice President Regulatory Name Role Phone Unavailable Primary Care Provider Unavailabl e Source Comments [facility] [employer],non-owned Affiliates and Associated Physician Practices is amultiple site organization consisting of ambulatory clinics and hospital sitesin [place], [place] and [place]. This disclosure is being madepursuant to the Care Everywhere program and may not contain all information available regarding this patient. Last updated 17.[facility] [employer] Social History Tobacco Use Types Packs/Day Years Used Date Smoking Tobacco: Never Assessed Sex and Gender Information Value Date Recorded Sex Assigned at Not on file Gender Identity Not on file Sexual Orientation Not on file Plan of Treatment Health Maintenance Due Date Last Done Comments BONE DENSITY TESTING 1955 COLOGUARD (AGES 45-75) - COL ON CA SCREENING 1955 COLON MONITORING 1953 COLONOSCOPY - COLON CA SCREENING 1953 CT COLONOGRAPHY - COLON CA SCREENING 1953 Colorectal Cancer Screening 1953 FIT - COLON CA SCREENING 1953 FLEX SIG - COLON CA SCREENING 1953 LIPID TESTING 1953 MAMMOGRAM 1953 MEDICARE AWV 12 MONTHS 1953 HEPATITIS C SCREENING 11/02/1971 DTAP/TDAP/TD VACCINES (1 - Tdap) 1972 PNEUMOCOCCAL VACCINE 50+ (1 of 1 - PCV) 11/07/2003 ZOSTER VACCINE (1 of 2) 11/07/2003 COVID-19 VACCINE ( - 2023-2 5 season) 2023 INFLUENZA VACCINE (#1) 2023 9, 12/13/2017 DEPRESSION SCREENING 03/02/2024 Respiratory Syncytial Virus (RSV) Vaccine Pt: or over 60 yrs (1 - 1-dose 75+ series) 2028 HEPATITIS B VACCINE Aged Out No longe r eligible based on patient's age to complete this topic HIB VACCINE Aged Out No longer eligi ble based on patient's age to complete this topic HPV VACCINE Aged Out No longer eligi ble based on patient's age to complete this topic MENINGOCOCCAL (Group B) VACCINE Aged Out No longer eligible b ased on patient's age to complete this topic MENINGOCOCCAL VACCINE Aged Out No heaven sveta eligible based on patient's age to complete this topic
--- OUTSIDE RECORDS SUMMARY | 2024-04-22 12:32 | XMS_ITS | Referral Summary ---
Author Organization [facility] Address [address] [place] [address] Phone Care Team Providers Care Engineering Design Manager Name Role Phone Derek Rubio MD Primary Care Provider [phone] Encounters Date Type Department Care Team Description 03/14/2024 11:03 AM DIRECTOR FINANCIAL SYSTEMS - 03/14/2024 11:59 PM DIRECTOR FINANCIAL SYSTEMS Hospital Encounter [id number] [address] [place] [address] [address] [place] [address] S/P total knee arthroplasty, left Discharge Disposition: Discharge to home or self care 03/14/2024 11:40 AM DIRECTOR FINANCIAL SYSTEMS Office Visit [facility] [address] [place] [address] 4 [address] [place] [address] Saud Zaragoza MD Surgical follow-up care (Primary Dx); Primary osteoarthritis of right knee; Chronic pain of right knee 02/29/2024 Orders Only [facility] [address] [place] [address] 4 [address] [place] [address] Saud Zaragoza MD ISTAP type 2 skin tear of left lower extremity (Primary Dx) 02/19/2024 Orders Only [facility] [address] [place] [address] 4 [address] [place] [address] Saud Zaragoza MD Chronic pain of left knee (Primary Dx) 02/05/2024 8:51 AM DIRECTOR FINANCIAL SYSTEMS - 02/06/2024 11:17 AM DIRECTOR FINANCIAL SYSTEMS Hospital Encounter [facility] [id number] [place] [address] Saud Zaragoza MD Primary osteoarthritis of left knee (Primary Dx) Discharge Disposition: Discharge to home or self care 02/05/2024 11:35 AM DIRECTOR FINANCIAL SYSTEMS - 02/05/2024 1:30 PM DIRECTOR FINANCIAL SYSTEMS Surgery [facility] Operating Room [address] [place], [place] [address] Saud Zaragoza MD ARTHROPLASTY LEFT TOTAL KNEE - DEPUY 02/05/2024 11:24 AM DIRECTOR FINANCIAL SYSTEMS Anesthesia Event [facility] Operating Room [address] [place] [address] Carolynn Tian MD McKenzie, Kerry A., NP from Last 3 Months Allergies No known active allergies Medications fexofenadine (LASHAE) 180 mg tabletIndicati ons:Allergic Rhinitis Take 1 tablet (180 mg total) by mouth every morning Active esomeprazole DR (NexIUM) 40 mg capsuleIndicat ions:acid reflux Take 1 capsule (40 mg total) by mouth as needed (as needed for acid reflux) 8 Active lisinopril (PRINIVIL,ZEST RIL) 20 mg tabletIndicati ons:hypertensi on Take 1 tablet (20 mg total) by mouth nightly 8 Active lovastatin (MEVACOR) 40 mg tabletIndicati ons:hyperlipid emia Take 1 tablet (40 mg total) by mouth nightly 9 Active albuterol HFA (PROVENTIL HFA,VENTOLIN HFA,PROAIR HFA) 90 mcg/actuation inhalerIndicat ions:Bronchosp asm Prevention Inhale 1 puff every 6 (six) hours as needed for wheezing (as needed for wheezing) 2 Active cholecalcifero l (VITAMIN D-3) 5,000 unit capsuleIndicat ions:Vitamin D Deficiency Take 1 capsule (5,000 Units total) by mouth every morning 4 Active melatonin 5 mg tablet Take 1 tablet (5 mg total) by mouth nightly as needed (for sleep) Active estradioL (ESTRACE) 0.01 % (0.1 mg/gram) vaginal creamIndicatio ns:Atrophic Vaginitis associated with Menopause Insert 2 g into the vagina as needed (as needed) HOLD FOR 4 WEEKS AFTER ORTHOPEDIC SURGERY 5 Active acetaminophen (TYLENOL) 500 mg tablet Take 2 tablets (1,000 mg total) by mouth every 8 (eight) hours 90 tablet 1 4 Active aspirin 81 mg enteric coated tabletIndicati ons:prevention of thrombosis Take 1 tablet (81 mg total) by mouth 2 (two) times a day 60 tablet 4 Active meloxicam (MOBIC) 7.5 mg tablet Take 1 tablet (7.5 mg total) by mouth daily 30 tablet [address] (PROTONIX) 20 mg EC tablet Take 1 tablet (20 mg total) by mouth daily 30 tablet 4 Active senna-docusate (Senna-S) 8.6-50 mg Take 2 tablets by mouth 2 (two) times a day 80 tablet 1 4 Active traMADoL (ULTRAM) 50 mg tabletIndicati ons:Postoperat katie pain Take 1 tablet (50 mg total) by mouth every 6 (six) hours as needed for pain 28 tablet 5 Active oxyCODONE (ROXICODONE) 5 mg immediate release tabletIndicati ons:Pain Take 1 tablet (5 mg total) by mouth every 8 (eight) hours as needed for pain 30 tablet 5 Active oxyCODONE (ROXICODONE) 5 mg immediate release tabletIndicati ons:Pain Take 1 tablet (5 mg total) by mouth every 6 (six) hours as needed for pain 30 tablet 5 04/04/19 25 Discontinu ed(Reorder ) Active Problems Problem Noted Date Diagnosed Date Osteoarthritis of left knee, unspecified osteoarthritis type 02/05/2024 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 Assessment & Plan (10/07/2021 10:52 AM CDT): Normal [place] visual field (HVF) both eyes (OU), RNFL both eyes (OU) Normal intraocular pressure (IOP) both eyes (OU) Low risk CTM Assessment & Plan (09/27/2020 4:08 PM CDT): Normal [place] visual field (HVF) both eyes (OU), RNFL both eyes (OU) Normal intraocular pressure (IOP) both eyes (OU) Low risk CTM Assessment & Plan (03/28/2020 9:49 AM DIRECTOR FINANCIAL SYSTEMS): Asymmetric intraocular pressure (IOP) right eye (OD)>Os Pt over due for testing [place] visual field (HVF) AND on oct both eyes (OU) pach and gonio Benign neoplasm of skin of left lower eyelid Assessment & Plan (02/14/2019 8:50 AM DIRECTOR FINANCIAL SYSTEMS): Offered consult for excision. Pt elects observation. Combined form of senile cataract of both eyes Assessment & Plan (10/07/2021 10:53 AM CDT): Central opacities left eye (OS)>>OD Approaching visual significance, Monitor Assessment & Plan (09/27/2020 4:14 PM CDT): Surgery not yet indicated. Update SRx. 1 year. Assessment & Plan (03/28/2020 9:15 AM DIRECTOR FINANCIAL SYSTEMS): Surgery not yet indicated. No change in Rx. 1 year. Assessment & Plan (02/14/2019 8:48 AM DIRECTOR FINANCIAL SYSTEMS): Surgery not yet indicated. Update SRx. 1 year. Vitreomacular traction syndrome of both eyes Assessment & Plan (10/07/2021 10:53 AM CDT): S/p PPV OU for VMT with CME in 2011. Doing great. Progressing cataracts. Observe. Assessment & Plan (03/28/2020 9:16 AM DIRECTOR FINANCIAL SYSTEMS): S/p PPV OU for VMT with CME in 2011. Doing great. Progressing cataracts. Observe. Assessment & Plan (02/14/2019 8:49 AM DIRECTOR FINANCIAL SYSTEMS): S/p PPV OU for VMT with CME in 2011. Doing great. Surprisingly mild cataracts. Observe. 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 Open angle with borderline i ntraocular pressure 07/21/2016 02/14/2019 Posterior subcapsular polar senile cataract 06/25/2015 02/14/2019 Primary optic atrophy 06/25/20152018 Vitreomacular adhesion of left eye 06/25/2015 02/14/2019 Immunizations Immunization Administration Dates Next Due Influenza, Quadrivalent, Split, Intramuscular Influenza, Trivalent, High D ose, Split, Preservative Free, Intramuscular 01/16/2019 Influenza, Trivalent, IM (MDV) 12/13/2017 Pneumococcal Conjugate PCV 13 01/16/2019 Tdap 07/15/2018 ZOSTER LIVE 12/13/2017,01/27/2015 ZOSTER Recombinant 02/17/2018,12/13/2017 Social History Tobacco Use Types Packs/Day Years Used Date Smoking Tobacco: Former Cigarettes 0.5 13 1 969 - 1982 Smokeless Tobacco: Never Tobacco Cessation:Counseling Given: Not Answered Comments:Quit 40 years ago Alcohol Use Standard Drinks/Week Comments Yes 0 (1 standard drink = 0.6 oz pur e alcohol) Rare AUDIT-C Answer Date Recorded Q1: How often do you have a drink containing alc ohol? 2-4 times a month 02/05/2024 Q2: How many drinks containi ng alcohol do you have on a typical day when you are drinking? 1 or 2 02/05/2024 Q3: How often do you have si x or more drinks on one occasion? Never 02/05/2024 Personal Safety Answer Date Recorded Have you ever been in or are you currently in a harmful physical or emotional relationship or is someone making you feel afraid or unsafe? Denies 02/05/2024 Comments No Sex and Gender Information Value Date Recorded Sex Assigned at Not on file Legal Sex Female 2:41 AM DIRECTOR FINANCIAL SYSTEMS Gender Identity Not on file Sexual Orientation Not on file Last Filed Vital Signs Vital Sign Reading Time Taken Comments Blood Pressure 133/69 02/06/2024 4:37 AM DIRECTOR FINANCIAL SYSTEMS Pulse 72 02/06/2024 4:37 AM DIRECTOR FINANCIAL SYSTEMS Temperature 36.1 C (96.9 F) 02/06/2024 4:37 AM DIRECTOR FINANCIAL SYSTEMS Respiratory Rate 16 02/06/2024 4:37 AM DIRECTOR FINANCIAL SYSTEMS Oxygen Saturation 99% 02/06/2024 4:37 AM DIRECTOR FINANCIAL SYSTEMS Inhaled Oxygen Concentration - - Weight 83.3 kg (183 lb 9.6 oz) 02/05/2024 9:25 A M DIRECTOR FINANCIAL SYSTEMS Height 154.9 cm (5' 0.98 ) 02/05/2024 9:25 AM CS T Body Mass Index 34.71 02/05/2024 9:25 AM DIRECTOR FINANCIAL SYSTEMS Plan of Treatment Not on file Medical Devices Implanted Type Area Oyster Grader Device Identifier Shelf Expiration Date Model / Serial / Lot Screw Screw Right: Toes [employer] Insert Tibial Knee Fixed Lm Posterior Stabilized Attune 5mm Size 6 Polyethylene [id number] - [id number] Implanted:Qty: 1 on 02/05/2024 at [facility] Left: Knee [employer] 10/31/2031 [id number] / / [id number] [employer] Attune Fb Tib Base Sz 6 Por [id number] - [id number] Implanted:Qty: 1 on 02/05/2024 at [facility] Left: Knee [employer] 10/30/2033 [id number] / / [id number] [employer] Attune Cruciate Retain Cementless Knee Left 6 Narrow Component [id number] - [id number] Implanted:Qty: 1 on 02/05/2024 at [facility] Left: Knee [employer] 10/30/2033 [id number] / / [id number] Procedures Procedure Name Priority Date/Time Associated Diagnosis Comments XR KNEE LEFT 4 OR MORE VIEWS Schedule Routine, Read Routine (OP Routine) 03/14/2024 11:44 AM DIRECTOR FINANCIAL SYSTEMS S/P total knee arthroplasty, left VA ARTHROCENTESIS ASPIR&/INJ MAJOR JT/BURSA W/O US Routine 03/14/2024 11:40 AM DIRECTOR FINANCIAL SYSTEMS Primary osteoarthritis of right knee Chronic pain of right knee EGFR Routine 02/06/2024 4:49 AM DIRECTOR FINANCIAL SYSTEMS HEMOGLOBIN AND HEMATOCRIT Routine 02/06/2024 4:49 AM DIRECTOR FINANCIAL SYSTEMS BASIC METABOLIC PANEL Routine 02/06/2024 4:49 AM DIRECTOR FINANCIAL SYSTEMS ECG 12-LEAD STAT 02/05/2024 1:28 PM DIRECTOR FINANCIAL SYSTEMS XR KNEE LEFT 1 OR 2 VIEWS ED Urgent/IP Urgent 02/05/2024 1:07 PM DIRECTOR FINANCIAL SYSTEMS ARTHROPLASTY TOTAL KNEE - DEPUY 02/05/2024 11:28 AM DIRECTOR FINANCIAL SYSTEMS Primary osteoarthritis of left knee VA AN PROCEDURE PLACEHOLDER Routine 02/05/2024 11:17 AM DIRECTOR FINANCIAL SYSTEMS VA AN PROCEDURE PLACEHOLDER Routine 02/05/2024 11:17 AM DIRECTOR FINANCIAL SYSTEMS VA AN PROCEDURE PLACEHOLDER Routine 02/05/2024 11:17 AM DIRECTOR FINANCIAL SYSTEMS VA AN PROCEDURE PLACEHOLDER Routine 02/05/2024 11:17 AM DIRECTOR FINANCIAL SYSTEMS VA AN PROCEDURE PLACEHOLDER Routine 02/05/2024 11:17 AM DIRECTOR FINANCIAL SYSTEMS from Last 3 Months Results * XR Knee Left 4 or More Views (03/14/2024 11:44 AM DIRECTOR FINANCIAL SYSTEMS) Anatomical Region Laterality Modality Lower Extremities, Knee Left Computed Radiography 03/14/2024 12:4 4 PM DIRECTOR FINANCIAL SYSTEMS Impressions 03/14/2024 12:44 PM DIRECTOR FINANCIAL SYSTEMS Two-component left knee arthroplasty in expected position without hardware complication. Electronically signed by: Saqib Borjas D.O. Narrative 03/14/2024 12:44 PM DIRECTOR FINANCIAL SYSTEMS EXAMINATION: XR KNEE LEFT 4 OR MORE VIEWS HISTORY: status post left total knee arthroplasty COMPARISON: Radiographs 02/05/2024 FINDINGS: Two-component left knee arthroplasty in expected position. No osteolysis, subsidence, or periprosthetic fracture. Interval resolution of postoperative soft tissue gas. No joint effusion. Neutral left leg mechanical axis. Procedure Note Saqib Borjas, - 03/14/2024 EXAMINATION: XR KNEE LEFT 4 OR MORE VIEWS HISTORY: status post left total knee arthroplasty COMPARISON: Radiographs 02/05/2024 FINDINGS: Two-component left knee arthroplasty in expected position. No osteolysis, subsidence, or periprosthetic fracture. Interval resolution of postoperative soft tissue gas. No joint effusion. Neutral left leg mechanical axis. IMPRESSION: Two-component left knee arthroplasty in expected position without hardware complication. Electronically signed by: Saqib Borjas D.O. us Saud Zaragoza MD IMG XR PROCEDURES Final R esult * VA ARTHROCENTESIS ASPIR&/INJ MAJOR JT/BURSA W/O US (03/14/2024 11:40 AM DIRECTOR FINANCIAL SYSTEMS) Narrative Saud Zaragoza MD - 03/14/2024 11:40 AM DIRECTOR FINANCIAL SYSTEMS Saud Zaragoza MD 03/17/2024 10:25 PM Large Joint Injection: R knee Performed by: Saud Zaragoza MD Authorized by: Saud Zaragoza MD Large Joint Injection/Aspiration: Consent Given by: Patient Verbal consent obtained: Yes Supporting Documentation: Indications: Pain Procedure Details: Location: Knee Site: R knee Prep: patient was prepped and draped in usual sterile fashion Needle Size: 22 G Approach: Superior lateral Ultrasound guided: No Medications: 80 mg triamcinolone 40 mg/mL; 6 mL BUPivacaine HCl 0.25 % (2.5 mg/mL) Patient tolerance: Patient tolerated the procedure well with no immediate complications us Saud Zaragoza MD IN CLINIC/BEDSIDE ORDERAB LES Final Result * eGFR (02/06/2024 4:49 AM DIRECTOR FINANCIAL SYSTEMS) eGFR >90 >=60 mL/min/1. 73 m2 Comment: Interpretive Data Reference Interval Normal >/= 90 mL/min/1.73m2 Mildly decreased* 60 - 89 mL/min/1.73m2 Mildly to moderately decreased 45 - 59 mL/min/1.73m2 Moderately to severely decreased 30 - 44 mL/min/1.73m2 Severely decreased 15 - 29 mL/min/1.73m2 Kidney Failure < 15 mL/min/1.73m2 *Relative to young adult level Estimated glomerular filtration rate is determined by the 2020 CKD-EPI equation recommended by the National Kidney Foundation (A Unifying Approach to GFR Estimation: Recommendations of the NKF-ASK Task Force on Reassessing the Inclusion of Race in Diagnosing Kidney Disease, JASN 2020). The CKD-EPI equation should not be used for patients with unstable renal function and has not been validated in children and those over 70. Current interpretive data was last reviewed 2020. Blood 02/06/2024 4:49 AM DIRECTOR FINANCIAL SYSTEMS 02/06/2024 4:54 AM DIRECTOR FINANCIAL SYSTEMS Saud Zaragoza MD LAB BLOOD ORDERABLES Imlena l Result Performing Organization Address City/[facility]/ZIP Co de Phone Number [facility] [address] [employer] [place] [address] * Hemoglobin and hematocrit (02/06/2024 4:49 AM DIRECTOR FINANCIAL SYSTEMS) Hgb 12.9 11.9 - 15.5 g/dL Hct 39.9 35.6 - 45.5 % [facility] SOLOR[facility] Blood 02/06/2024 4:49 AM DIRECTOR FINANCIAL SYSTEMS 02/06/2024 4:54 AM DIRECTOR FINANCIAL SYSTEMS Saud Zaragoza MD LAB BLOOD ORDERABLES Milena l Result [facility] [address] [facility]. Department [place] [address] * (ABNORMAL) Basic metabolic panel (02/06/2024 4:49 AM DIRECTOR FINANCIAL SYSTEMS) Sodium 137 135 - 145 mmol/L Potassium, pl 4.3 3.3 - 4.9 mmol/L [facility] Chloride 104 97 - 110 mmol/L [facility] CO2 21(L) 22 - 32 mmol/L [facility] Anion gap 13 2 - 15 mmol/L [facility] BUN 21 6 - 25 mg/dL [facility] Creatinine 0.70 0.60 - 1.10 mg/dL [facility] Glucose 157 70 - 199 mg/dL [facility] Comment: Interpretive Data Fasting glucose >/= 126 mg/dl is diagnostic for diabetes. Fasting is defined as no caloric intake for at least 8 hours. Fasting glucose between 100 mg/dl to 125 mg/dl is diagnostic of prediabetes. In a patient with classic symptoms of hyperglycemia or hyperglycemic crisis, a random glucose >/= 200 mg/dl is diagnostic for diabetes. In the absence of unequivocal hyperglycemia, results should be confirmed by repeat testing. The classification and Diagnosis of Diabetes Diabetes Care 2021; 46: S19-S40. Current interpretive data was last revised 2022. Calcium 9.9 8.5 - 10.3 mg/dL [facility] Blood 02/06/2024 4:49 AM DIRECTOR FINANCIAL SYSTEMS 02/06/2024 4:54 AM DIRECTOR FINANCIAL SYSTEMS Saud Zaragoza MD LAB BLOOD ORDERABLES Milena l Result [facility] [address] [facility]. [facility] [employer] [place] [address] * ECG 12 lead (02/05/2024 1:28 PM DIRECTOR FINANCIAL SYSTEMS) 02/05/2024 1:28 PM DIRECTOR FINANCIAL SYSTEMS Narrative [facility] - 02/08/2024 8:25 AM DIRECTOR FINANCIAL SYSTEMS Vent Rate: 85 bpm RR Interval: 700 msec VA Interval: 176 msec QRS Duration: 88 msec QT Interval: 350 msec QTC Interval: 392 msec P-R-T [place]: 27 - 26 - 25 degrees IMPRESSION: SINUS RHYTHM LOW QRS VOLTAGE IN PRECORDIAL LEADS BORDERLINE ECG Electronically Signed By: Melva Campo [facility] Adina Lee DO ECG ORDERABLES Final Result [facility] * XR Knee Left 1 or 2 View (02/05/2024 1:07 PM DIRECTOR FINANCIAL SYSTEMS) Anatomical Region Laterality Modality Lower Extremities, Knee Left Computed Radiography 02/05/2024 1:15 PM DIRECTOR FINANCIAL SYSTEMS Impressions 02/05/2024 1:15 PM DIRECTOR FINANCIAL SYSTEMS 1. New two component left knee arthroplasty in expected position. Electronically signed by: Miki Pavon M.D. Narrative 02/05/2024 1:15 PM DIRECTOR FINANCIAL SYSTEMS EXAMINATION: XR KNEE LEFT 1 OR 2 VIEWS HISTORY: Left knee osteoarthritis COMPARISON: 03/17/2023 FINDINGS: Two view examination of the left knee is performed. There is a new two component left knee arthroplasty in expected position. There is postoperative soft tissue gas and swelling. No fracture is present. Posterior loose bodies in a popliteal cyst are unchanged. Procedure Note Miki Pavon MD - 02/05/2024 EXAMINATION: XR KNEE LEFT 1 OR 2 VIEWS HISTORY: Left knee osteoarthritis COMPARISON: 03/17/2023 FINDINGS: Two view examination of the left knee is performed. There is a new two component left knee arthroplasty in expected position. There is postoperative soft tissue gas and swelling. No fracture is present. Posterior loose bodies in a popliteal cyst are unchanged. IMPRESSION: 1. New two component left knee arthroplasty in expected position. Electronically signed by: Miki Pavon M.D. Saud Zaragoza MD IMG XR PROCEDURES Final R esult * VA AN PROCEDURE PLACEHOLDER (02/05/2024 11:17 AM DIRECTOR FINANCIAL SYSTEMS) Narrative Carolynn Tian MD - 02/05/2024 11:17 AM DIRECTOR FINANCIAL SYSTEMS Carolynn Tian MD 02/05/2024 11:17 AM Peripheral Block Patient location during procedure: pre-op holding Reason for block: post-op pain management per surgeon request Ultrasound image in chart or stored: yes Block type: single shot Laterality: left Block type: vastus intermedius nerve block Procedure prep: Preprocedure checklist: patient identified, procedure contraindications assessed, site marked, procedure consent, surgical consent, IV checked, risks, benefits and alternatives discussed, monitors and equipment checked and timeout performed Patient position: supine Procedure performed while patient: sedate with meaningful contact Monitoring: oximetry Supplemental O2: nasal cannula Prep solution: chlorhexidine/alcohol Peripheral nerve block: Technique: ultrasound guided Needle type: short-bevel and echogenic Needle gauge: 21 G Needle length: 80 mm Injection assessment: injection made incrementally with constant monitoring, negative aspiration for heme, no paresthesias noted, normal resistance to injection and see flowsheet for medication details Assessment: Block success: full evaluation pending Events: patient tolerated procedure well with no complications Carolynn Tian MD ANESTHESIA ORDERABLES Fi nal Result * VA AN PROCEDURE PLACEHOLDER (02/05/2024 11:17 AM DIRECTOR FINANCIAL SYSTEMS) Narrative Carolynn Tian MD - 02/05/2024 11:17 AM DIRECTOR FINANCIAL SYSTEMS Carolynn Tian MD 02/05/2024 11:17 AM Peripheral Block Patient location during procedure: pre-op holding Reason for block: post-op pain management per surgeon request Ultrasound image in chart or stored: yes Block type: single shot Laterality: left Block type: genicular nerve block Procedure prep: Preprocedure checklist: patient identified, procedure contraindications assessed, site marked, procedure consent, surgical consent, IV checked, risks, benefits and alternatives discussed, monitors and equipment checked and timeout performed Patient position: supine Procedure performed while patient: sedate with meaningful contact Monitoring: oximetry Supplemental O2: nasal cannula Prep solution: chlorhexidine/alcohol Peripheral nerve block: Technique: ultrasound guided Needle type: short-bevel and echogenic Needle gauge: 21 G Needle length: 80 mm Injection assessment: injection made incrementally with constant monitoring, negative aspiration for heme, no paresthesias noted, normal resistance to injection and see flowsheet for medication details Assessment: Block success: full evaluation pending Events: patient tolerated procedure well with no complications Additional comments: (Superior Medial, Superior Lateral, Inferior Medial, Inferior Lateral genicular nerves) Carolynn Tian MD ANESTHESIA ORDERABLES Fi nal Result * VA AN PROCEDURE PLACEHOLDER (02/05/2024 11:17 AM DIRECTOR FINANCIAL SYSTEMS) Carolynn Mixon MD - 02/05/2024 11:17 AM DIRECTOR FINANCIAL SYSTEMS Carolynn Tian MD 02/05/2024 11:17 AM Peripheral Block Patient location during procedure: pre-op holding Reason for block: post-op pain management per surgeon request Ultrasound image in chart or stored: yes Block type: single shot Laterality: left Block type: IPACK Procedure prep: Preprocedure checklist: patient identified, procedure contraindications assessed, site marked, procedure consent, surgical consent, IV checked, risks, benefits and alternatives discussed, monitors and equipment checked and timeout performed Patient position: supine Procedure performed while patient: sedate with meaningful contact Monitoring: oximetry Supplemental O2: nasal cannula Prep solution: chlorhexidine/alcohol Peripheral nerve block: Technique: ultrasound guided Needle type: short-bevel and echogenic Needle gauge: 21 G Needle length: 80 mm Injection assessment: injection made incrementally with constant monitoring, negative aspiration for heme, no paresthesias noted, normal resistance to injection and see flowsheet for medication details Assessment: Block success: full evaluation pending Events: patient tolerated procedure well with no complications Carolynn Tian MD ANESTHESIA ORDERABLES Fi nal Result * VA AN PROCEDURE PLACEHOLDER (02/05/2024 11:17 AM DIRECTOR FINANCIAL SYSTEMS) Carolynn Mixon MD - 02/05/2024 11:17 AM DIRECTOR FINANCIAL SYSTEMS Carolynn Tian MD 02/05/2024 11:17 AM Peripheral Block Patient location during procedure: pre-op holding Reason for block: post-op pain management per surgeon request Ultrasound image in chart or stored: yes Block type: single shot Laterality: left Block type: saphenous nerve block - subsartorial approach Procedure prep: Preprocedure checklist: patient identified, procedure contraindications assessed, site marked, procedure consent, surgical consent, IV checked, risks, benefits and alternatives discussed, monitors and equipment checked and timeout performed Patient position: supine Procedure performed while patient: sedate with meaningful contact Monitoring: oximetry Supplemental O2: nasal cannula Prep solution: chlorhexidine/alcohol Peripheral nerve block: Technique: ultrasound guided Needle type: short-bevel and echogenic Needle gauge: 21 G Needle length: 80 mm Injection assessment: injection made incrementally with constant monitoring, local visualized surrounding nerve on ultrasound, negative aspiration for heme, no paresthesias noted, normal resistance to injection and see flowsheet for medication details Assessment: Block success: full evaluation pending Events: patient tolerated procedure well with no complications Carolynn Tian MD ANESTHESIA ORDERABLES Fi nal Result * [place] AN PROCEDURE PLACEHOLDER (02/05/2024 11:17 AM DIRECTOR FINANCIAL SYSTEMS) Narrative Carolynn Tian MD - 02/05/2024 11:17 AM DIRECTOR FINANCIAL SYSTEMS Carolynn Tian MD 02/05/2024 11:17 AM Spinal Block Patient location: pre-op holding Reason for block: primary anesthetic Procedure prep: Preprocedure checklist: patient identified, procedure contraindications assessed, site marked, procedure consent, surgical consent, IV checked, risks, benefits and alternatives discussed, monitors and equipment checked and timeout performed Patient position: sitting Procedure performed while patient: sedate with meaningful contact Monitoring: oximetry and blood pressure Supplemental O2: nasal cannula Prep solution: chlorhexadine/alcohol PPE: sterile gloves, provider hat/mask and sterile drape Skin infiltrated with lidocaine 1%: yes Spinal: Approach: midline Introducer used: yes Location: L2-3 Spinal injection: CSF demonstrated, no aspiration of heme and no paresthesias noted Number of attempts: 1 Spinal Needle: Needle type: Kaylah Cody (Getie Cody) Needle gauge: 25 G Needle length: 9 cm Assessment: Events: patient tolerated procedure well with no complications Result [facility] Carolynn Tian MD ANESTHESIA ORDERABLES Fi nal Result from Last 3 Months Insurance MEDICARE [facility] MEDICARE MEDICARE [facility] FEDERAL Advance Directives For more information, please contact: [phone] Documents on File Type Date Recorded 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
--- OUTSIDE RECORDS SUMMARY | 2024-04-22 12:32 | XMS_ITS | Clinical Summary ---
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 Gender Identity Not on file Sexual Orientation Not on file Plan of Treatment Health Maintenance Due Date Last Done Comments DEXA Bone Density 1955 Hepatitis C Virus (HCV) Screening 1955 Colonoscopy 1998 Colorectal Cancer Screening 1998 Cologuard 11/07/2003 Immunochemical Fecal Occult Blood 11/07/2003 Mammogram 11/07/2003 Pneumococcal Immunization (5 0+ years) (1 of 1 - PCV) 11/07/2003 Zoster Immunization (2 of 3) 02/07/2018, 01/27/2015 Influenza Immunization (#1) 2023 SARS-COV-2 Immunization ( season) 2023 12/12/2020, 05/22/2020, 05/01/2020 Respiratory Syncytial Virus (RSV) Immunization (Adult) (1 - 1-dose 75+ series) 2028 DTaP/Tdap/Td Immunization Discontinued 07/15/2018 TdaP Immunization Completed 07/15/2018 Hepatitis B Immunization Aged Out No longer eligible based on patient's age to complete this topic Meningococcal Immunization (ACWY) Aged Out No longer eligible based on patient's age to complete this topic Rotavirus Immunization Aged Out No lo nger eligible based on patient's age to complete this topic
--- OUTSIDE RECORDS SUMMARY | 2024-04-22 12:32 | XMS_ITS | Clinical Summary ---
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 Pt elects observation. Combined form of senile cataract of both eyes Assessment & Plan (10/07/2021 10:53 AM CDT): Central opacities left eye (OS)>>OD Approaching visual significance, Monitor Assessment & Plan (09/27/2020 4:14 PM CDT): Surgery not yet indicated. Update SRx. 1 year. Assessment & Plan (03/28/2020 9:15 AM LONG CHAIN DYEING MACHINE OPERATOR): Surgery not yet indicated. No change in Rx. 1 year. Assessment & Plan (02/14/2019 8:48 AM LONG CHAIN DYEING MACHINE OPERATOR): Surgery not yet indicated. Update SRx. 1 year. Vitreomacular traction syndrome of both eyes Assessment & Plan (10/07/2021 10:53 AM CDT): S/p PPV OU for VMT with CME in 2011. Doing great. Progressing cataracts. Observe. Assessment & Plan (03/28/2020 9:16 AM LONG CHAIN DYEING MACHINE OPERATOR): S/p PPV OU for VMT with CME in 2012. Doing great. Progressing cataracts. Observe. Assessment & Plan (02/14/2019 8:49 AM LONG CHAIN DYEING MACHINE OPERATOR): S/p PPV OU for VMT with CME in 2012. Doing great. Surprisingly mild cataracts. Observe. Osteoarthritis [...] Vitreomacular adhesion of left eye 06/25/2015 02/14/2019 Encounters Date Type Department Care Team Description 03/14/2024 11:40 AM LONG CHAIN DYEING MACHINE OPERATOR Office Visit [facility] Orthopaedic Surgery [address] [place] [address] Medical Office Building [address] [place] [id number] Saud Zaragoza MD Surgical follow-up care (Primary Dx); Primary osteoarthritis of right knee; Chronic pain of right knee 03/14/2024 11:03 AM LONG CHAIN DYEING MACHINE OPERATOR - 03/14/2024 11:59 PM LONG CHAIN DYEING MACHINE OPERATOR Hospital Encounter [facility] [address] [place] [address] [address] [place] [address] S/P total knee arthroplasty, left Discharge Disposition: Discharge to home or self care 02/29/2024 Orders Only [facility] Orthopaedic Surgery [address] [place] [address] Medical Office Building [address] [place] [phone] Saud Zaragoza MD ISTAP type 2 skin tear of left lower extremity (Primary Dx) 02/19/2024 Orders Only [facility] Orthopaedic Surgery [address] [facility] Medical Office Building [address] [place] [address] Saud Zaragoza MD Chronic pain of left knee (Primary Dx) 02/05/2024 11:35 AM LONG CHAIN DYEING MACHINE OPERATOR - 02/05/2024 1:30 PM LONG CHAIN DYEING MACHINE OPERATOR Surgery [facility] Operating Room [address] [place], [place] [address] Saud Zaragoza MD ARTHROPLASTY LEFT TOTAL KNEE - DEPUY 02/05/2024 11:24 AM LONG CHAIN DYEING MACHINE OPERATOR Anesthesia Event [facility] Operating Room [address] [place] [address] Carolynn Tian MD McKenzie, Kerry A., NP 02/05/2024 8:51 AM LONG CHAIN DYEING MACHINE OPERATOR - 02/06/2024 11:17 AM LONG CHAIN DYEING MACHINE OPERATOR Hospital Encounter [facility] [address] [place] [address] Saud Zaragoza MD Primary osteoarthritis of left knee (Primary Dx) Discharge Disposition: Discharge to home or self care from Last 3 Months Immunizations Immunization Administration Dates Next Due Influenza, Quadrivalent, Split, Intramuscular Influenza, Trivalent, High D ose, Split, Preservative Free, Intramuscular 01/16/2019 Influenza, Trivalent, IM (MDV) 12/13/2017 Pneumococcal Conjugate PCV 13 01/16/2019 Tdap 07/15/2018 ZOSTER LIVE 12/13/2017,01/27/2015 ZOSTER Recombinant 02/17/2018,12/13/2017 Surgical History Surgery Date Site/Laterality Comments NERVE BLOCK Peripheral Nerve Block Wrist Median Bilateral - (Added by TW Conv) CARPAL TUNNEL RELEASE EYE SURGERY EYE SURGERY VITRECTOMY BUNIONECTOMY 04/02/2020 - 04/29/2020 Right Medical History Medical History Date Comments Arthritis Gastric reflux Headache Hypertension Family History Medical History Relation Name Comments Arthritis Brother 1 Family history of arthritis - (Added by TW Conv) Hypertension Brother 2 Family history of hypertension - (Added by TW Conv) Cancer Brother 3 Family history of malignant neoplasm - (Added by TW Conv) Arthritis Father Family history of arthritis - (Added by TW Conv) Cancer Father Family history of malignant neoplasm - (Added by TW Conv) Hypertension Father Family history of hypertension - (Added by TW Conv) Arthritis Mother Family history of arthritis - (Added by TW Conv) Cancer Mother Family history of malignant neoplasm - (Added by TW Conv) Heart disease Mother Family history of cardiac disorder - (Added by TW Conv) Hypertension Mother Family history of hypertension - (Added by TW Conv) Kidney disease Mother Family histor y of kidney disease - (Added by TW Conv) Glaucoma Neg Hx Macular degeneration Neg Hx Relation Name Status Comments Brother 1 Brother 2 Brother 3 Father Mother Social History Tobacco Use Types Packs/Day Years Used Date Smoking Tobacco: Former Cigarettes 0.5 13 1 969 - 1981 Smokeless Tobacco: Never Tobacco Cessation:Counseling Given: Not [...] on file Legal Sex Female 2:41 AM LONG CHAIN DYEING MACHINE OPERATOR Gender Identity Not on file Sexual Orientation Not on file Obstetrics History Last Filed Vital Signs Vital Sign Reading Time Taken Comments Blood Pressure 133/69 02/06/2024 4:37 AM LONG CHAIN DYEING MACHINE OPERATOR Pulse 72 02/06/2024 4:37 AM LONG CHAIN DYEING MACHINE OPERATOR Temperature 36.1 C (96.9 F) 02/06/2024 4:37 AM LONG CHAIN DYEING MACHINE OPERATOR Respiratory Rate 16 02/06/2024 4:37 AM LONG CHAIN DYEING MACHINE OPERATOR Oxygen Saturation 99% 02/06/2024 4:37 AM LONG CHAIN DYEING MACHINE OPERATOR Inhaled Oxygen Concentration - - Weight 83.3 kg (183 lb 9.6 oz) 02/05/2024 9:25 A M LONG CHAIN DYEING MACHINE OPERATOR Height 154.9 cm (5' 0.98 ) 02/05/2024 9:25 AM CS T Body Mass Index 34.71 02/05/2024 9:25 AM LONG CHAIN DYEING MACHINE OPERATOR Plan of Treatment Health Maintenance Due Date Last Done Comments Breast Cancer Screening-Mammogram 1955 Colon Cancer Screening-Colonoscopy 1955 Depression Screening 1955 Hepatitis C Screening 1955 Osteoporosis Screening-Bone Density Scan 1955 Hepatitis B Screening 11/07/1971 Well Visit 65+ 2018 Pneumococcal vaccine 65+ (2 of 2 - PPSV23) 01/17/2020 01/16/2019 Influenza Vaccine (#1) 2023 9, 12/13/2017, 12/13/2017 Fall Risk Assessment 02/05/2025 02/06/2024 DTaP/Tdap/Td Vaccine (2 - Td or Tdap) 07/15/2028 07/15/2018 Zoster Vaccine Completed 02/17/2018, 11/30, 12/13/2017, Additional history exists Medical Devices Implanted Type Area Flash Welding Machine Operator Device Identifier Shelf Expiration Date Model / Serial / Lot Screw Screw Right: Toes [employer] Insert Tibial Knee Fixed Lm Posterior Stabilized Attune 5mm Size 6 Polyethylene [id number] - [id number] Implanted:Qty: 1 on 02/05/2024 at [facility] Left: Knee [employer] 10/31/2031 [id number] / / [id number] [employer] Attune Fb Tib Base Sz 6 Por [id number] - [id number] Implanted:Qty: 1 on 02/05/2024 at [facility] Left: Knee [employer] 10/30/2033 [id number] / / [id number] [employer] Attune Cruciate Retain Cementless Knee Left 6 Narrow Component [id number] - [id number] Implanted:Qty: 1 on 02/05/2024 at [facility] Left: Knee [employer] 10/30/2033 [id number] / / [id number] Procedures Procedure Name Priority Date/Time Associated Diagnosis Comments XR KNEE LEFT 4 OR MORE VIEWS Schedule Routine, Read Routine (OP Routine) 03/14/2024 11:44 AM LONG CHAIN DYEING MACHINE OPERATOR S/P total knee arthroplasty, left OK ARTHROCENTESIS ASPIR&/INJ MAJOR JT/BURSA W/O US Routine 03/14/2024 11:40 AM LONG CHAIN DYEING MACHINE OPERATOR Primary osteoarthritis of right knee Chronic pain of right knee EGFR Routine 02/06/2024 4:49 AM LONG CHAIN DYEING MACHINE OPERATOR HEMOGLOBIN AND HEMATOCRIT Routine 02/06/2024 4:49 AM LONG CHAIN DYEING MACHINE OPERATOR BASIC METABOLIC PANEL Routine 02/06/2024 4:49 AM LONG CHAIN DYEING MACHINE OPERATOR ECG 12-LEAD STAT 02/05/2024 1:28 PM LONG CHAIN DYEING MACHINE OPERATOR XR KNEE LEFT 1 OR 2 VIEWS ED Urgent/IP Urgent 02/05/2024 1:07 PM LONG CHAIN DYEING MACHINE OPERATOR ARTHROPLASTY TOTAL KNEE - DEPUY 02/05/2024 11:28 AM LONG CHAIN DYEING MACHINE OPERATOR Primary osteoarthritis of left knee OK AN PROCEDURE PLACEHOLDER Routine 02/05/2024 11:17 AM LONG CHAIN DYEING MACHINE OPERATOR OK AN PROCEDURE PLACEHOLDER Routine 02/05/2024 11:17 AM LONG CHAIN DYEING MACHINE OPERATOR OK AN PROCEDURE PLACEHOLDER Routine 02/05/2024 11:17 AM LONG CHAIN DYEING MACHINE OPERATOR OK AN PROCEDURE PLACEHOLDER Routine 02/05/2024 11:17 AM LONG CHAIN DYEING MACHINE OPERATOR OK AN PROCEDURE PLACEHOLDER Routine 02/05/2024 11:17 AM LONG CHAIN DYEING MACHINE OPERATOR from Last 3 Months Results * XR Knee Left 4 or More Views (03/14/2024 11:44 AM LONG CHAIN DYEING MACHINE OPERATOR) Anatomical Region Laterality Modality Lower Extremities, Knee Left Computed Radiography 03/14/2024 12:4 4 PM LONG CHAIN DYEING MACHINE OPERATOR Impressions 03/14/2024 12:44 PM LONG CHAIN DYEING MACHINE OPERATOR Two-component left knee arthroplasty in expected position without hardware complication. Electronically signed by: Saqib Borjas D.O. Narrative 03/14/2024 12:44 PM LONG CHAIN DYEING MACHINE OPERATOR EXAMINATION: XR KNEE LEFT 4 OR MORE VIEWS HISTORY: status post left total knee arthroplasty COMPARISON: Radiographs 02/05/2024 FINDINGS: Two-component left knee arthroplasty in expected position. No osteolysis, subsidence, or periprosthetic fracture. Interval resolution of postoperative soft tissue gas. No joint effusion. Neutral left leg mechanical axis. Procedure Note Saqib Borjas DO - 03/14/2024 EXAMINATION: XR KNEE LEFT 4 [...] IMG XR PROCEDURES Final R esult * OK ARTHROCENTESIS ASPIR&/INJ MAJOR JT/BURSA W/O US (03/14/2024 11:40 AM LONG CHAIN DYEING MACHINE OPERATOR) Narrative Saud Zaragoza MD - 03/14/2024 11:40 AM LONG CHAIN DYEING MACHINE OPERATOR Saud Zaragoza MD 03/17/2024 10:25 PM Large [...] Final Result * eGFR (02/06/2024 4:49 AM LONG CHAIN DYEING MACHINE OPERATOR) eGFR >90 >=60 mL/min/1. 73 m2 Comment: [...] last reviewed 2020. Blood 02/06/2024 4:49 AM LONG CHAIN DYEING MACHINE OPERATOR 02/06/2024 4:54 AM LONG CHAIN DYEING MACHINE OPERATOR us Saud Zaragoza MD LAB BLOOD ORDERABLES Milena l Result Performing Organization Address City/[facility]/ZIP Co de Phone Number [facility] [address] [employer] [place] [address] * Hemoglobin and hematocrit (02/06/2024 4:49 AM LONG CHAIN DYEING MACHINE OPERATOR) Pathologist [facility] Hgb 12.9 11.9 - 15.5 g/dL Hct 39.9 35.6 - 45.5 % [facility] Blood 02/06/2024 4:49 AM LONG CHAIN DYEING MACHINE OPERATOR 02/06/2024 4:54 AM LONG CHAIN DYEING MACHINE OPERATOR us Saud Zaragoza MD LAB BLOOD ORDERABLES Milena l Result [facility] [address] [employer] [place] [address] * (ABNORMAL) Basic metabolic panel (02/06/2024 4:49 AM LONG CHAIN DYEING MACHINE OPERATOR) Pathologist [facility] Sodium 137 135 - 145 mmol/L Potassium, pl 4.3 3.3 - 4.9 mmol/L [facility] Chloride 104 97 - 110 mmol/L [facility] CO2 21(L) 22 - 32 mmol/L [facility] Anion gap 13 2 - 15 mmol/L [facility] BUN 21 6 - 25 mg/dL [facility] Creatinine 0.70 0.60 - 1.10 mg/dL [facility] Glucose 157 70 - 199 mg/dL [facility] Comment: Interpretive Data Fasting glucose >/= 126 [...] 2022. Calcium 9.9 8.5 - 10.3 mg/dL [facility] Blood 02/06/2024 4:49 AM LONG CHAIN DYEING MACHINE OPERATOR 02/06/2024 4:54 AM LONG CHAIN DYEING MACHINE OPERATOR Saud Zaragoza MD LAB BLOOD ORDERABLES Milena niki Result Performing Organization Address City/State/[facility] de Phone Number [facility] [address] [facility] Department [place] [address] * ECG 12 lead (02/05/2024 1:28 PM LONG CHAIN DYEING MACHINE OPERATOR) 02/05/2024 1:28 PM LONG CHAIN DYEING MACHINE OPERATOR Narrative [facility] - 02/08/2024 8:25 AM LONG CHAIN DYEING MACHINE OPERATOR Vent Rate: 85 bpm RR Interval: 700 msec OK Interval: 176 msec QRS Duration: 88 msec QT Interval: 350 msec QTC Interval: 392 msec P-R-T [place]: 27 - 26 - 25 degrees IMPRESSION: SINUS RHYTHM LOW QRS VOLTAGE IN PRECORDIAL LEADS BORDERLINE ECG Electronically Signed By: Melva Campo [facility] Adina Lee DO ECG ORDERABLES Final Result [facility] * XR Knee Left 1 or 2 View (02/05/2024 1:07 PM LONG CHAIN DYEING MACHINE OPERATOR) Anatomical Region Laterality Modality Lower Extremities, Knee Left Computed Radiography 02/05/2024 1:15 PM LONG CHAIN DYEING MACHINE OPERATOR Impressions 02/05/2024 1:15 PM LONG CHAIN DYEING MACHINE OPERATOR 1. New two component left knee arthroplasty in expected position. Electronically signed by: Miki Pavon M.D. Narrative 02/05/2024 1:15 PM LONG CHAIN DYEING MACHINE OPERATOR EXAMINATION: XR KNEE LEFT 1 OR 2 [...] IMG XR PROCEDURES Final R esult * OK AN PROCEDURE PLACEHOLDER (02/05/2024 11:17 AM LONG CHAIN DYEING MACHINE OPERATOR) Narrative Carolynn Tian MD - 02/05/2024 11:17 AM LONG CHAIN DYEING MACHINE OPERATOR Carolynn Tian MD 02/05/2024 11:17 AM Peripheral [...] MD ANESTHESIA ORDERABLES Fi nal Result * OK AN PROCEDURE PLACEHOLDER (02/05/2024 11:17 AM LONG CHAIN DYEING MACHINE OPERATOR) Carolynn Mixon MD - 02/05/2024 11:17 AM LONG CHAIN DYEING MACHINE OPERATOR Carolynn Tian MD 02/05/2024 11:17 AM Peripheral [...] Lateral, Inferior Medial, Inferior Lateral genicular nerves) us Carolynn Tian MD ANESTHESIA ORDERABLES Fi nal Result * OK AN PROCEDURE PLACEHOLDER (02/05/2024 11:17 AM LONG CHAIN DYEING MACHINE OPERATOR) Carolynn Mixon MD - 02/05/2024 11:17 AM LONG CHAIN DYEING MACHINE OPERATOR Carolynn Tian MD 02/05/2024 11:17 AM Peripheral [...] MD ANESTHESIA ORDERABLES Fi nal Result * OK AN PROCEDURE PLACEHOLDER (02/05/2024 11:17 AM [facility]) Narrative Carolynn Tian MD - 02/05/2024 11:17 AM LONG CHAIN DYEING MACHINE OPERATOR Carolynn Tian MD 02/05/2024 11:17 AM Peripheral [...] tolerated procedure well with no complications Result [facility] Carolynn Tian MD ANESTHESIA ORDERABLES Fi nal Result * OK AN PROCEDURE PLACEHOLDER (02/05/2024 11:17 AM LONG CHAIN DYEING MACHINE OPERATOR) Narrative Carolynn Tian MD - 02/05/2024 11:17 AM LONG CHAIN DYEING MACHINE OPERATOR Carolynn Tian MD 02/05/2024 11:17 AM Spinal [...] tolerated procedure well with no complications Result [facility] Carolynn Tian MD ANESTHESIA ORDERABLES Fi nal Result from Last 3 Months Insurance MEDICARE [facility] MEDICARE MEDICARE [facility] FEDERAL Advance Directives For more information, please contact: [phone] Documents on File Type Date Recorded 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
--- OUTSIDE RECORDS SUMMARY | 2024-04-22 12:32 | XMS_ITS | Referral Summary ---
Author Organization [facility] Address [address] [place] [address] Care Team Providers Care Bonderite Operator Name Role Phone Unavailable Primary Care Provider Unavailabl e Source Comments [facility],non-owned Affiliates and Associated Physician Practices is amultiple site organization consisting of ambulatory clinics and hospital sitesin [place], [place], [place] and [place]. This disclosure is being madepursuant to the Care Everywhere program and may not contain all information available regarding this patient. Last updated 17.[facility] [employer] Social History Tobacco Use Types Packs/Day Years Used Date Smoking Tobacco: Never Assessed Sex and Gender Information Value Date Recorded Sex Assigned at Not on file Gender Identity Not on file Sexual Orientation Not on file Plan of Treatment Not on file
--- OUTSIDE RECORDS SUMMARY | 2024-04-22 12:32 | XMS_ITS | Encounter Summary ---
Author Organization [facility] Address [address] [place] [address] Care Team Providers Care Appliance Parts Counter Clerk Name Role Phone Derek Rubio MD Primary Care Provider [phone] Encounter Details Date Type Department Care Team (Late st Contact Info) Description 04/20/2024 External Device Data [facility]CTION Provider, Abstract NO ADDRESS ON FILE Social History Tobacco Use Types Packs/Day Years Used Date Smoking Tobacco: Never Smokeless Tobacco: Never Alcohol Use Standard Drinks/Week Comments Yes 4 (1 standard drink = 0.6 oz pur e alcohol) Ocasionally Comments Unknown Sex and Gender Information Value Date Recorded Sex Assigned at Female 01/04/2024 12:34 PM INSOLVENCY PRACTITIONER Legal Sex Female 9:41 AM CDT Gender Identity Female 01/04/2024 12:34 PM INSOLVENCY PRACTITIONER Sexual Orientation Not on file documented as of this encounter Plan of Treatment Upcoming Encounters Date Type Department Care Team (Late Contact Info) Description 04/22/2024 12:45 PM INSOLVENCY PRACTITIONER Office Visit [facility]3] Oncology and Hematology - [place] [address] [place] [address] Prakash Britt MD [address] [place] [address] documented as of this encounter Visit Diagnoses Not on filedocumented in this encounter Care Teams Appliance Parts Counter Clerk Relationship Specialty Start Date End Date Derek Rubio MD [address] [place] [address] PCP - General Family Practice 11/06/23 documented as of this encounter
--- OUTSIDE RECORDS SUMMARY | 2024-04-22 12:32 | XMS_ITS | Patient Health Summary ---
Author Organization [facility] Address [address] [place] [address] Care Team Providers Care Fire Alarm Mechanic Name Role Phone Unavailable Primary Care Provider Unavailabl e Note from [facility],non-owned Affiliates and Associated Physician Practices is amultiple site organization consisting of ambulatory clinics and hospital sitesin [place], [place], [place] and [place]. This disclosure is being madepursuant to the Care Everywhere program and may not contain all information available regarding this patient. Last updated 17.[facility] Social History Tobacco Use Types Packs/Day Years Used Date Smoking Tobacco: Never Assessed Sex and Gender Information Value Date Recorded Sex Assigned at Not on file Gender Identity Not on file Sexual Orientation Not on file Procedures * GROSS + MICRO EXAM(Performed 06/06/2008) Results * GROSS + MICRO EXAM (06/06/2008 11:19 AM CDT) Result CASE NUMBER [id number] Comment: ORDERING PHYSICIAN DOMINGO CUETO SPECIMEN TYPE Colon Biopsy-SIGMOID Date 06/06/2008 Physician Lo Cueto Gross Description The specimen is received in Formalin labeled with the patient's name, Yanira Renteria, and sigmoid biopsy. It consists of multiple fragments of brown owens soft tissue measuring 0.9 x 0.6 x 0.3 cm in aggregate. The specimen is submitted entirely in a single cassette. [facility] Microscopic Exam Microscopic examination reveals multiple fragments of colonic mucosa with mild edematous change, extravasated red blood cells, but no evidence of active or chronic colitis. Ischemic changes or neoplasia is not present. Minimal chronic inflammation is noted. GM/na Diagnosis I. Sigmoid, clinical history of bloody diarrhea,biopsy -- No significant abnormality GM/na Ballast Regulator Operator na Pathologist Claudia Hicks M.D. Sn[place]. 06/07/2008 1055 <1> CPT code 04676 MISCELLANEOUS SAMPLES / Unknown 06/06/2008 11:19 AM CDT 06/06/2008 12:02 PM CDT Historical Provider LAB - PATHOLOGY/C YTOLOGY ORDERABLES
[2024-04-22 13:04] LABS: Hematocrit 38.9 % (37.0-47.0); Hemoglobin 12.3 g/dL (12.0-15.0); Mean Corpuscular HGB Conc 31.6 g/dl (32-36); Mean Corpuscular Volume 85.5 fl (80-100); Mean Platelet Volume 10.1 fl (7.4-10.4); Platelet Count Result 217 k/mm3 (150-375); Red Blood Count 4.55 M/mm3 (4.2-5.4); Red Cell Distribution Width 14.6 % (11.5-14.5); White Blood Count 7.6 K/mm3 (4.5-10.0)
== END 2024-04-22 12:27 | disposition home or self-care (01) ==
LOC: ANHLAB 12:30
PROVIDERS: PCP Family Medicine; Visit Provider Internal Medicine Hematology & Oncology
DX: D69.9 Hemorrhagic condition, unspecified (principal)
CPT/HCPCS: 36415; 85027

== ENCOUNTER 2025-03-01 09:46 | Outpatient (CLI) | payer MEDICARE, BC, SELFPAY ==
--- NOTE | ~2025-03-01 | MM_ITS ---
EXAMINATION: MM screening elizabeth BI w tim HISTORY: Screening. TECHNIQUE: Craniocaudal and mediolateral oblique 3-D tomosynthesis images were obtained and synthetic 2-D images were generated. CAD analysis was submitted and interpreted. COMPARISON: 2023, 2022, and 2021 BREAST PARENCHYMAL COMPOSITION: Not Dense: There are scattered areas of fibroglandular tissue FINDINGS: No suspicious masses are seen. There are no suspicious calcifications. No unexplained architectural distortion is seen. There are no skin or nipple abnormalities identified. There is no adenopathy seen on the images submitted. IMPRESSION: No mammographic evidence to suggest malignancy is seen. The patient may return to screening mammography as per ACR guidelines. BI-RADS 1 - Negative. Reviewed, dictated and finalized at location C. 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
--- OUTSIDE RECORDS SUMMARY | 2025-03-01 09:57 | XMS_ITS | Clinical Summary ---
Author Organization [facility] Address [address] [place] [address] Care Team Providers Care Explosives Operator Name Role Phone Derek Rubio MD Primary Care Provider [phone] Allergies No known active allergies Medications fexofenadine (LASHAE) 180 mg tablet Take 180 mg by [...] Take by mouth 2 times daily. Active oxyCODONE (ROXICODONE) 5 mg tablet Take 5 mg by mouth every 8 hours as needed. Active Active Problems No known active problems Encounters Date Type Department Care Team Description 02/21/2025 External Device Data [facility] ABSTRACTION Provider, Abstract 12/21/2024 External Device Data [facility] ABSTRACTION Provider, Abstract 12/20/2024 External Device Data [facility] ABSTRACTION Provider, Abstract from Last 3 Months Family History Medical [...] Sex Assigned at Female 01/04/2024 12:34 PM FLIGHT ENGINEER MANAGER Legal Sex Female 9:41 AM CDT Gender Identity Female 01/04/2024 12:34 PM FLIGHT ENGINEER MANAGER Sexual Orientation Not on file Last Filed Vital Signs Vital Sign Reading Time Taken Comments Blood Pressure 132/77 04/22/2024 1:14 PM FLIGHT ENGINEER MANAGER Pulse 83 04/22/2024 1:14 PM FLIGHT ENGINEER MANAGER Temperature 36.3 C (97.4 F) 04/22/2024 1:14 PM FLIGHT ENGINEER MANAGER Respiratory Rate 15 04/22/2024 1:14 PM FLIGHT ENGINEER MANAGER Oxygen Saturation 97% 04/22/2024 1:14 PM FLIGHT ENGINEER MANAGER Inhaled Oxygen Concentration - - Weight 80 kg (176 lb 6.4 oz) 04/22/2024 1:14 PM FLIGHT ENGINEER MANAGER Height 154.9 cm (5' 1) 12/24/2023 10:19 AM CDT Body Mass Index 33.33 12/24/2023 10:19 AM CDT Plan of Treatment Health Maintenance Due Date Last Done Comments FIT-DNA Q 3 years 1998 FIT/FOBT Q 1 year 1998 Flex Sig/CT Colonography Q 5 years 1998 ZOSTER VACCINE (3 of 3) 04/14/2018 02/18/20 18, 12/13/2017, 01/27/2015 PNEUMOCOCCAL VACCINE 50+ YEA RS (2 of 2 - PCV20 or PCV21) 01/17/2020 01/16/2019 INFLUENZA VACCINE (#1) 2024 9, 12/13/2017, 12/13/2017 BREAST CANCER SCREENING 01/19/2025 01/20/20 24, 01/20/2024, 12/29/2022, Additional history exists DTAP/TDAP/TD VACCINES (2 - T d or Tdap) 07/15/2028 07/15/2018 RSV VACCINE (60+ or ) (1 - 1-dose 75+ series) 2028 OSTEOPOROSIS SCREENING 01/19/2029 01/20/2024, 2021 COLORECTAL SCREENING 11/23/2033 11/24/2023 Colorectal Cancer Screening 11/23/2033 Insurance MEDICARE PART A AND B [facility] Advance Directives For more information, please contact: [phone] Documents on File Type Date Recorded 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 [address] PCP - General Family Practice 11/06/23
--- OUTSIDE RECORDS SUMMARY | 2025-03-01 09:57 | XMS_ITS | Clinical Summary ---
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 Gender Identity Not on file Sexual Orientation Not on file Plan of Treatment Health Maintenance Due Date Last Done Comments Hepatitis C Virus (HCV) Screening 1955 Cologuard 1998 Colonoscopy 1998 Colorectal Cancer Screening 1998 Immunochemical Fecal Occult Blood 1998 Pneumococcal Immunization (5 0+ years) (1 of 1 - PCV) 11/07/2003 Zoster Immunization (2 of 3) 02/07/2018, 01/27/2015 Influenza Immunization (#1) 2024 12/13/2017 SARS-COV-2 Immunization ( season) 2024 12/12/2020, 05/22/2020, 05/01/2020 Respiratory Syncytial Virus (RSV) Immunization (Adult) (1 - 1-dose 75+ series) 2028 DTaP/Tdap/Td Immunization Discontinued 07/15/2018 TdaP Immunization Completed 07/15/2018 Hepatitis B Immunization Aged Out No longer eligible based on patient's age to complete this topic Human Papillomavirus (HPV) Immunization Aged Out No longer eligible based on patient's age to complete this topic Meningococcal Immunization (ACWY) Aged Out No longer eligible based on patient's age to complete this topic Rotavirus Immunization Aged Out No lo nger eligible based on patient's age to complete this topic
--- OUTSIDE RECORDS SUMMARY | 2025-03-01 09:57 | XMS_ITS | Clinical Summary ---
Author Organization [facility] Address [address] [place] [address] Phone Care Team Providers Care Tomography Technologist Name Role Phone Derek Rubio MD Primary Care Provider [phone] Allergies Active Allergy Reactions Criticality Noted Date Comments Sanchez Unknown 07/22/2024 Mold Unknown 07/22/2024 Pollen Extracts Eye irritation,Heada vielka,Nausea only,Sneezing,Tinnitus Medium 06/27/2024 Medications fexofenadine (LASHAE) 180 mg tabletIndicatio ns:Allergic Rhinitis Take 1 tablet (180 mg total) by mouth every morning Active esomeprazole DR (NexIUM) 40 mg capsuleIndicati ons:acid reflux Take 1 capsule (40 mg total) by mouth as needed (as needed for acid reflux) 8 Active lisinopril (PRINIVIL,ZESTR IL) 20 mg tabletIndicatio ns:hypertension Take 1 tablet (20 mg total) by mouth nightly 8 Active lovastatin (MEVACOR) 40 mg tabletIndicatio ns:hyperlipidem ia Take 1 tablet (40 mg total) by mouth nightly 9 Active albuterol HFA (PROVENTIL HFA,VENTOLIN HFA,PROAIR HFA) 90 mcg/actuation inhalerIndicati ons:Bronchospas m Prevention Inhale 1 puff every 6 (six) hours as needed for wheezing (as needed for wheezing) Has not used for a year 2 Active melatonin 5 mg tabletIndicatio ns:sleep Take 1 tablet (5 mg total) by mouth nightly as needed (for sleep) Active estradioL (ESTRACE) 0.01 % (0.1 mg/gram) vaginal creamIndication s:Atrophic Vaginitis associated with Menopause Insert 2 g into the vagina as needed (as needed) HOLD FOR 4 WEEKS AFTER ORTHOPEDIC SURGERY 5 Active Additional Information Patient taking differently:2 g vaginal As needed, as needed,Has not used for months per patient, Indications: Atrophic Vaginitis associated with Menopause, Informant: Self, Reported on 01/02/2025 ascorbic acid (VITAMIN C ORAL)Indication s:supplement Take 1 tablet by mouth every morning Active acetaminophen (TYLENOL) 500 mg tablet Take 2 tablets (1,000 mg total) by mouth every 8 (eight) hours 90 tablet 5 Active senna-docusate (PERICOLACE) 8.6-50 mg Take 2 tablets by mouth 2 (two) times a day May increase to 4 tablets twice daily if needed. HOLD medication for diarrhea. 5 Active calcium carbonate (OS-ADRIANNA) 1,250 mg (500 mg elemental) tablet Take 1 tablet (1,250 mg total) by mouth daily 5 07/16/19 26 Active amoxicillin (AMOXIL) 500 mg tablet/capsule TAKE FOUR TABLETS/CAPSULES 1 HOUR PRIOR TO DENTAL PROCEDURE 8 tablet/capsu le 5 5 Active cholecalciferol (VITAMIN D-3) 5,000 unit capsule by other route 5 Active oxyCODONE (ROXICODONE) 5 mg immediate release tabletIndicatio ns:Pain Take 1 tablet (5 mg total) by mouth every 6 (six) hours as needed for pain 40 tablet 5 Active Active Problems Problem Noted Date Diagnosed Date Acute blood loss anemia 11/02/2024 Blood in stool 11/02/2024 Easy bruising 11/02/2024 Femoral distal fracture 11/02/2024 Gait abnormality 11/02/2024 GERD without esophagitis 11/02/2024 Grade I diastolic dysfunction 11/02/2024 Hypersomnia 11/02/2024 History of total left knee replacement (TKR) 04/2024 Low bone mass 11/02/2024 Obesity with alveolar hypoventilation 11/02/2024 Mixed sleep apnea 11/02/2024 Osteopenia 11/02/2024 Shortness of breath 11/02/2024 Sleep apnea in adult 11/02/2024 Vaginal atrophy 11/02/2024 Urinary urgency 11/02/2024 Vaginal dryness, menopausal 11/02/2024 Vertigo 11/02/2024 Vitamin D deficiency 11/02/2024 Closed fracture of left distal femur 07/18/2024 Arthrofibrosis of total knee arthroplasty, seque la 07/14/2024 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 Pt elects observation. Combined form of senile cataract of both eyes Assessment & Plan (10/07/2021 10:53 AM CDT): Central opacities left eye (OS)>>OD Approaching visual significance, Monitor Assessment & Plan (09/27/2020 4:14 PM CDT): Surgery not yet indicated. Update SRx. 1 year. Assessment & Plan (03/28/2020 9:15 AM CLINICAL RESOURCE COORDINATOR): Surgery not yet indicated. No change in Rx. 1 year. Assessment & Plan (02/14/2019 8:48 AM CLINICAL RESOURCE COORDINATOR): Surgery not yet indicated. Update SRx. 1 year. Vitreomacular traction syndrome of both eyes Assessment & Plan (10/07/2021 10:53 AM CDT): S/p PPV OU for VMT with CME in 2012. Doing great. Progressing cataracts. Observe. Assessment & Plan (03/28/2020 9:16 AM CLINICAL RESOURCE COORDINATOR): S/p PPV OU for VMT with CME in 2012. Doing great. Progressing cataracts. Observe. Assessment & Plan (02/14/2019 8:49 AM CLINICAL RESOURCE COORDINATOR): S/p PPV OU for VMT with CME [...] Encounters Date Type Department Care Team Description 01/02/2025 1:00 PM CLINICAL RESOURCE COORDINATOR Office Visit [facility] Medicine Orthopaedic Surgery [address] [place] [address] Saud Zaragoza MD Primary osteoarthritis of right knee (Primary Dx); Chronic pain of right knee from Last 3 Months Immunizations Immunization Administration [...] (Added by TW Conv) CARPAL TUNNEL RELEASE Right in mid 20's EYE SURGERY cataracts EYE SURGERY retina tear VITRECTOMY BUNIONECTOMY 04/02/2020 - 04/29/2020 Right REPLACEMENT TOTAL KNEE 02/05/2024 Left COLONOSCOPY several - last was 11/2023 Medical History Medical History Date Comments Arthritis Gastric reflux Headache Hypertension Sleep apnea Family History Medical History Relation Name Comments [...] kidney disease - (Added by TW Conv) Anesthesia problems Neg Hx Glaucoma Neg Hx Macular degeneration Neg Hx Relation Name Status Comments Brother 1 Brother 2 Brother 3 Father Mother Social History Tobacco Use Types Packs/Day Years Used Date Smoking Tobacco: Former Cigarettes 0.5 13 1 969 - 1982 Passive Smoke Exposure: Never Smokeless Tobacco: Never Tobacco Cessation:Counseling Given: Not Answered Comments:Quit 40 years ago Alcohol Use Standard Drinks/Week Comments Yes 0 (1 standard drink = 0.6 oz pur e alcohol) Rare AUDIT-C Answer Date Recorded Q1: How often do you have a drink containing alc ohol? 2-4 times a month 07/14/2024 Q2: How many drinks containi ng alcohol do you have on a typical day when you are drinking? 1 or 2 07/14/2024 Q3: How often do you have si x or more drinks on one occasion? Never 07/14/2024 Personal Safety Answer Date Recorded Have you ever been in or are you currently in a harmful physical or emotional relationship or is someone making you feel afraid or unsafe? Denies 07/14/2024 Comments No Sex and Gender Information Value Date Recorded Sex Assigned at Not on file Legal Sex Female 2:41 AM CLINICAL RESOURCE COORDINATOR Gender Identity Not on file Sexual Orientation Not on file Last Filed Vital Signs Vital Sign Reading Time Taken Comments Blood Pressure 129/63 07/22/2024 8:11 AM CDT Pulse 76 07/22/2024 8:11 AM CDT Temperature 36.4 C (97.6 F) 07/22/2024 8:11 AM CDT Respiratory Rate 16 07/22/2024 8:11 AM CDT Oxygen Saturation 100% 07/22/2024 8:11 AM CDT Inhaled Oxygen Concentration - - Weight 81.2 kg (179 lb) 07/14/2024 5:18 AM CDT Height 154.9 cm (5' 1) 07/14/2024 5:18 AM CDT Body Mass Index 33.82 07/14/2024 5:18 AM CDT Plan of Treatment Health Maintenance Due Date Last Done Comments Breast Cancer Screening-Mammogram 1955 Colon Cancer Screening-Colonoscopy 1955 Depression Screening 1955 Hepatitis C Screening 1955 Osteoporosis Screening-Bone Density Scan 1955 Hepatitis B Screening 11/07/1971 Well Visit 65+ 2018 Pneumococcal vaccine 65+ (2 of 2 - PCV20 or PCV21) 01/17/2020 01/16/2019 Influenza Vaccine (#1) 2024 , 01/16/2019, 12/13/2017, Additional history exists Fall Risk Assessment 07/22/2025 07/22/2024 DTaP/Tdap/Td Vaccine (2 - Td or Tdap) 07/15/2028 07/15/2018 Zoster Vaccine Completed 02/17/2018, 11/30, 12/13/2017, Additional history exists Medical Devices Implanted Type Area Leasing Associate Device Identifier Shelf Expiration Date Model / Serial / Lot Screw Screw Right: Toes [employer] Insert Tibial Knee Fixed Lm Posterior Stabilized Attune 5mm Size 6 Polyethylene [id number] - [id number] Implanted:Qty: 1 on 02/05/2024 at [facility] Left: Knee [employer] 10/31/2031 [id number] / / [id number] [employer] Attune Fb Tib Base Sz 6 Por [id number] - [id number] Implanted:Qty: 1 on 02/05/2024 at [facility] Left: Knee [employer] 10/30/2033 [id number] / / [id number] [employer] Attune Cruciate Retain Cementless Knee Left 6 Narrow Component [id number] - [id number] Implanted:Qty: 1 on 02/05/2024 at [facility] Left: Knee [employer] 10/30/2033 [id number] / / [id number] Synthes Screw Bone Locking Femoral Full Thread Light Green Frn Advanced Titanium 5.0x78mm 04.045.078s - [id number] Implanted:Qty: 1 on 07/20/2024 at [facility] Left: Femur Synthes 01/30/2032 04.045.078S / / [id number] Synthes Lcp Combi 336mm 16 Hole 4 Column Thread Variable Angle Condylar 02124.417 - [id number] Implanted:Qty: 1 on 07/20/2024 at [facility] Left: Femur Synthes 02.124.417 / / Synthes Screw Bone Locking Femoral Full Thread Light Green Frn Advanced Titanium 5.0x80mm 04.045.080s - [id number] Implanted:Qty: 1 on 07/20/2024 at [facility] Left: Femur Synthes 06/29/2032 04.045.080S / / [id number] Synthes 5mm 34mm Variable Angle Self Tap Lock Stardrive Condylar T25 02.231.234 - [id number] Implanted:Qty: 2 on 07/20/2024 at [facility] Left: Femur Synthes 02.231.234 / / Synthes 5mm 75mm Variable Angle Self Tap Lock Stardrive Condylar T25 02.231.275 - [id number] Implanted:Qty: 2 on 07/20/2024 at [facility] Left: Femur Synthes 02.231.275 / / Synthes 5mm 85mm Variable Angle Self Tap Lock Stardrive Condylar T25 02.231.285 - [id number] Implanted:Qty: 2 on 07/20/2024 at [facility] Left: Femur Synthes 02.231.285 / / Synthes 4.5mm 8mm 36mm Self Tap Large Hexagonal Socket Cortex Screw Bone 214.836 - [id number] Implanted:Qty: 1 on 07/20/2024 at [facility] Left: Femur Synthes 214.836 / / Synthes 4.5mm 8mm 85mm Self Tap Large Hexagonal Socket Cortex Screw Bone 214.885 - [id number] Implanted:Qty: 1 on 07/20/2024 at [facility] Left: Femur Synthes 214.885 / / Synthes Screw Bone Locking Femoral Threaded Frn Advanced 5.0x38mm 04.045.038s - [id number] Implanted:Qty: 1 on 07/20/2024 at [facility] Left: Femur Synthes 04/01/2032 04.045.038S / / [id number] Synthes Screw Bone Locking Femoral Threaded Frn Advanced 5.0x38mm 04.045.038s - [id number] Implanted:Qty: 1 on 07/20/2024 at [facility] Left: Femur Synthes 04/01/2032 04.045.038S / / [id number] Synthes Nail Intramedullary 5 Degree Femoral Retrograde Rfn Advanced [id number] Titanium 04.233.024s - [id number] Implanted:Qty: 1 on 07/20/2024 at [facility] Left: Femur Synthes 05/30/2028 04.233.024S / / [id number] Synthes Screw Bone Locking Femoral Threaded Frn Advanced 5.0x40mm 04.045.040s - [id number] Implanted:Qty: 1 on 07/20/2024 at [facility] Left: Femur Synthes 04/01/2032 04.045.040S / / [id number] Synthes Screw Bone Locking Femoral Threaded Frn Advanced 5.0x76mm 04.045.076s - [id number] Implanted:Qty: 1 on 07/20/2024 at [facility] Left: Femur Synthes 06/29/2032 04.045.076S / / [id number] Synthes Screw Bone Locking Cannulated Femoral Threaded Self Tapping 5.0x58mm 04.045.058s - [id number] Implanted:Qty: 1 on 07/20/2024 at [facility] Left: Femur Synthes 05/30/2033 04.045.058S / / [id number] Synthes Screw Bone Locking Femoral Threaded Frn Advanced 5.0x42mm 04.045.042s - [id number] Implanted:Qty: 1 on 07/20/2024 at [facility] Left: Femur Synthes 04/01/2032 04.045.042S / / [id number] Procedures Procedure Name Priority Date/Time Associated Diagnosis Comments HI ARTHROCENTESIS ASPIR&/INJ MAJOR JT/BURSA W/O US Routine 01/02/2025 1:00 PM CLINICAL RESOURCE COORDINATOR Primary osteoarthritis of right knee Chronic pain of right knee from Last 3 Months Results * HI ARTHROCENTESIS ASPIR&/INJ MAJOR JT/BURSA W/O US (01/02/2025 1:00 PM CLINICAL RESOURCE COORDINATOR) Saud Oakes MD - 01/02/2025 1:[address] 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 ADVANCE DIRECTIVE 07/26/2024 8:59 PM POWER OF PUBLIC ADDRESS SYSTEM OPERATOR-MEDICAL ADVANCE DIRECTIVE 02/09/2024 7:11 AM COREEN R OF PUBLIC ADDRESS SYSTEM OPERATOR-MEDICAL * Full Code (Latest Code Status on File) Date Activated Date Inactivated Comments 07/14/2024 7:40 AM 07/22/2024 5:15 PM * Full Code Date Activated Date Inactivated Comments 02/05/2024 2:44 PM 02/06/2024 3:17 PM Healthcare Agents on File Name Relationship Healthcare Agent Relationship Communication Angeles Baker Med POA Health Care Agent Mara Holliday Med POA [facility] Health Care Agent Care Teams Tomography Technologist Relationship Specialty Start Date End Date Derek Rubio MD PCP - General Family Medicine 08/24/17
== END 2025-03-01 09:47 | disposition home or self-care (01) ==
LOC: ANHFOHIMG 09:49
PROVIDERS: PCP Family Medicine; Visit Provider Family Medicine
DX: Z12.31 Encounter for screening mammogram for malignant neoplasm of breast (principal)
CPT/HCPCS: 77063; 77067